=== PATIENT | female | born 1950 | race Caucasian/White ===

== ENCOUNTER 2022-01-11 18:32 | Emergency (ER) | payer MEDICARE, MEDICAID, SELFPAY ==
[2022-01-11] VITALS (28 sets, daily range): BP systolic 149–182; BP diastolic 83–125; PULSE 83–98; RESP 14–32; TEMP 36.4; O2SAT 93–99
--- NOTE | 2022-01-11 18:45 | RT.EKG_ITS ---
APPROVED REPORT Exam: Resting ECG Reason for Exam: sob Patient Location: E HR:93 bpm ECG Measurements Heart Rate 93 AXIS DE 151 P 14 QRSd 85 QRS -18 QT 390 T -9 QTc 484 Conclusion Sinus rhythm...normal P axis, V-rate 60- 99 Inferior infarct, old...Q >35mS, II III aVF
--- NOTE | 2022-01-11 19:00 | DI.CT_ITS ---
Exam(s) CT CHEST PE CTA EXAM: CT CHEST PE CTA CLINICAL HISTORY: dyspnea, chest pain. TECHNIQUE: Imaging Protocol: Axial CT angiography was performed with multi-slice acquisition and mu lti-planar reconstructions as well as axial, coronal and sagittal MIP reconstructions. CONTRAST MATERIAL: Intravenous: Omnipaque 350 Contrast volume:100 ml COMPARISON: No exams were available for comparison FINDINGS: Pulmonary Arteries: No evidence of filling defect to suggest pulmonary emboli. Tracheobronchial tree: Patent where visualized. Mediastinum and Kena: No dominant adenopathy or fluid collection. Pulmonary parenchyma: Mild dependent changes. No consolidation or dominant measurable mass. Pleura: No effusion or pneumothorax. Heart: The heart is mildly dilated. Coronary artery stent noted. Aorta: Thoracic aorta non-dilated. No aneurysm. No dissection. Upper abdomen: Tiny hiatal hernia. Nodular, cirrhotic appearing liver. Status post cholecystectomy . Low-density nodule right adrenal gland, likely adenoma. Bones: Unremarkable for age. IMPRESSION: No evidence of pulmonary embolism or other acute abnormality. Cirrhotic appearing liver.. RADIATION DOSE DELIVERED: 498.15mGy.cm Total DLP DATA REPOSITORY: All CT scans at this facility are submitted to the National Radiology Data Registry (NRDR) Dose Index Registry (DIR) with the [employer] ([employer]). RADIATION OPTIMIZATION: All CT scans at this facility use at least one of these dose optimization te chniques: automated exposure control; mA and/or kV adjustment per patient size (includes targeted exa ms where dose is matched to clinical indication); or iterative reconstruction.
--- NOTE | 2022-01-11 19:04 | ED.GENADUL_ITS ---
Discharge Plan Disposition Patient Disposition: STILL A PATIENT Condition: Stable Discharge Details Clinical Impression: Dyspnea, Cough ED Provider: Elvin Meyer Home Meds and New Rx's Prescriptions: No Action atorvastatin 10 mg Tablet 10 mg PO DAILY sertraline [Zoloft] 25 mg Tablet 25 mg PO DAILY metoprolol succinate 25 mg Tablet Extended Release 24 Hr 25 mg PO DAILY omeprazole 20 mg Capsule,Delayed Release(Dr/Ec) 20 mg PO BID insulin glargine [Lantus Solostar U-100 Insulin] 100 unit/mL (3 mL) Insulin Pen 14 unit SUBCUT DAILY Medical Decision Making 71 yo female with hx of dm, sjogren's, cad s/p 4 stents, htn, who comes in with cc of one week of worsening dyspnea, cough and body aches. She moved to the area from [place] a week ago andher symptoms started when she got to the area. She denies fevers, has had intermittent anterior chest pain when coughing as well. She arrives stable though is hypertensive in the 170's systolic. She is speaking in full sentences, has apical wheezing bilaterally, denies chronic lung disease such as copd, remote smoker years ago. She has no calf tenderness, no jvd. She has no abdominal tenderness. Given her dyspnea, cough and chest pain will obtain fluvid, ekg, troponin though her symptoms seem more infectious then related to acs, and obtain cta to evaluate for pe vs infiltrate. Given her mild wheezing will also treat with solumedrol and duoneb pt signed out to oncoming provider pending lab work, ct results and reassessment Differential Diagnosis Differential Diagnosis: pe, covid, pneumonia, uri ECG Data Attestation: I personally reviewed and interpreted this ECG (s) as follows: Prior ECG tracings: not available for review Interpretation: sinus rhythm, rate of 93, pr 151, no acute st t wave ischemic findings HPI General Mode of arrival: ambulatory . Date/Time Provider Initiated Documentation: 01/11/22 18:41 . Limitations to Documentation: no limitations . Information obtained by: patient . History of Present Illness 71 year old F presents to the emergency department with the chief complaint of shortness of breath, described as moderate, Patient started experiencing this week(s) (1) and it has been constant and intermittent. Rest improves symptom(s), Movement worsens symptoms . Patient notes cough; denies fever/chills. Patient did receive the following treatments prior to arrival, none Related Data Home Medications Medication Instructions Recorded Confirmed atorvastatin 10 mg tablet 10 mg PO DAILY 01/11/22 01/11/22 insulin glargine 100 unit/mL (3 14 unit subcut DAILY 01/11/22 01/11/22 mL) subcutaneous pen (Lantus Solostar U-100 Insulin) metoprolol succinate 25 mg 25 mg PO DAILY 01/11/22 01/11/22 tablet,extended release 24 hr omeprazole 20 mg capsule,delayed 20 mg PO BID 01/11/22 01/11/22 release sertraline 25 mg tablet (Zoloft) 25 mg PO DAILY 01/11/22 01/11/22 Allergies Allergy/AdvReac Type Severity Reaction Status Date / Time Penicillins Allergy Unverified 01/11/22 18:51 General Stated Complaint: SOB IRAIDA: 2 Review of Systems All systems reviewed & are unremarkable except as noted in HPI and below Constitutional Constitutional: Denies chills and Denies fever(s) Eyes Eyes: Denies loss of vision Gastrointestinal Gastrointestinal: Denies abdominal pain, Denies nausea and Denies vomiting Integumentary/Breasts Skin/Breast: Denies rash Neurologic Neurologic: Denies loss of vision PFSH All Active Problems (Updated 01/11/22 @ 19:13 by Elvin Meyer MD) Dyspnea (Acute) Cough (Acute) Social History Smoking/Tobacco Use Status: Former Tobacco Use Smoking risk assessment performed?: Yes Drug use: Never Substance use type: does not use Exam Const General: no acute distress Orientation: alert HENMT Head: normal to inspection Ears: external ears normal General nose exam: external nose normal Mouth: moist mucous membranes Eyes General: appearance normal, both eyes and all related structures Neck Neck: normal visual inspection Resp Effort & Inspection: normal respiratory effort, able to speak in complete sentences and cough Cardio Rate: regular rate Skin General skin exam: no rashes or lesions noted Neuro General: patient alert and patient oriented x3 Extrem General: normal to inspection Psych Mental Status: mental status grossly normal Course Vital Signs Vital signs: Vital Signs Temperature 36.4 C L 01/11/22 18:43 Pulse 94 H 01/11/22 18:43 Respiratory Rate 15 01/11/22 18:43 Blood Pressure 177/125 H 01/11/22 18:43 Pulse Oximetry 94 01/11/22 18:43 Temperature 36.4 C L 01/11/22 18:43 Pulse 94 H 01/11/22 18:43 Respiratory Rate 15 01/11/22 18:43 Respiratory Effort 01/11/22 18:43 Blood Pressure 177/125 H 01/11/22 18:43 Blood Pressure Position Supine 01/11/22 18:43 Pulse Oximetry 94 01/11/22 18:43 Oxygen Delivery Method Room Air 01/11/22 18:43 Oxygen Flow Rate 0 01/11/22 18:43 Pain Level 8 01/11/22 18:43 Sign Out Sign Out Data: Sign Out Comment: recently moved to the area, hx of cad s/p 4 stents, sjogrens, dm, comes in with a week of dyspnea and cough and body aches along with intermittent chest pain primarily with coughing. Pending labs, cta for pe vs infiltrate, and reassessment after neb and solumedrol given she had apical wheezing. Last updated by Elvin Meyer MD at 01/11/22 19:17
[2022-01-11 19:19] LABS: Abs Immature Grans 0.01 10^3/uL (0.0-0.06); Absolute Basophil Count 0.03 10^3/uL (0.0-0.2); Absolute Eosinophil Count 0.01 10^3/uL (0.0-0.7); Absolute Lymphocyte Count 0.63 10^3/uL (1.2-3.4); Absolute Monocyte Count 0.37 10^3/uL (0.1-0.8); Absolute Neutrophil Count 5.12 10^3/uL (1.2-6.7); Basophils % 0.5; Eosinophils % 0.2; HGB 13.8 g/dL (11.2-15.7); Immature Grans % 0.2; Lymphocytes % 10.2; MCH 32.9 pg (27.0-33.0); MCHC 35.4 % (32.0-36.0); MCV 93 fL (80-95); MPV 10.8 fL (8.0-11.0); Neutrophils % 82.9; Platelet Count 155 10^3/uL (130-400); RDW 12.2 % (11.7-14.6); RDW-SD 41.3 fL; WBC 6.17 10^3/uL (4.4-10.8)
[2022-01-11 19:34] LABS: INR 1.1 (0.9-1.1); PTT Activated 25.9 sec (21.0-27.5); Prothrombin Time 10.7 sec (9.3-11.0)
[2022-01-11 19:42] LABS: ALT 31 U/L (14-59); AST 26 U/L (15-37); Albumin 3.5 g/dL (3.4-5.0); Alkaline Phosphatase 171 U/L (46-116); Anion Gap 13.7 mmol/L (3-11); BUN 14 mg/dL (7-18); Bilirubin, Total 0.6 mg/dL (0.2-1.0); CO2 19.3 mmol/L (21.0-32.0); Calcium 8.9 mg/dL (8.5-10.1); Chloride 99 mmol/L (98-107); Estimated GFR 60.61 (mL/min/1.73m2); Glucose 207 mg/dL (74-106); Magnesium 1.5 mg/dL (1.8-2.4); Potassium 3.5 mmol/L (3.5-5.1); Sodium 132 mmol/L (136-145); Total Protein 7.8 g/dL (6.4-8.2); Troponin I < 50 ng/L (<or=60)
[2022-01-11] MEDS: methylPREDNISolone SUCC 125 MG VIAL IVP (19:53)
[2022-01-11] MEDS: Albuterol/Ipratropium 3 ML UPD VIAL UPD (19:55)
[2022-01-11 19:57] LABS: Influenza A PCR Negative (Negative); Influenza B PCR Negative (Negative); RSV PCR Negative (Negative)
[2022-01-11 20:00] LABS: COVID-19 PCR Positive (Negative); Source Nasopharynx
[2022-01-11] MEDS: MAGNESIUM SULFATE 1 GM/100 ML BAG IVPB (20:08)
[2022-01-11] MEDS: Omnipaque 350 MG/ML 500 ML BTL-Imaging package IJ (20:12)
[2022-01-11] MEDS: Normal Saline Flush 10 ML SYR IVP (20:14)
--- NOTE | 2022-01-11 21:02 | DI.VRAD_ITS ---
PROCEDURE INFORMATION: Exam: CTA Chest With Contrast Exam date and time: 01/11/2022 20:18 Age: 71 years old Clinical indication: Other: Dyspnea, chest pain; Prior surgery; Surgery date: 6+ months; Surgery type: Heart stents TECHNIQUE: Imaging protocol: Computed tomographic angiography of the chest with contrast. 3D rendering (Not supervised by radiologist): MIP and/or 3D reconstructed images were created by the technologist. Radiation optimization: All CT scans at this facility use at least one of these dose optimization techniques: automated exposure control; mA and/or kV adjustment per patient size (includes targeted exams where dose is matched to clinical indication); or iterative reconstruction. Contrast material: OMNIPAQUE 350; Contrast volume: 100 ml; Contrast route: INTRAVENOUS (IV); COMPARISON: No relevant prior studies available. FINDINGS: Pulmonary arteries: No pulmonary emboli. Aorta: No aortic aneurysm. No aortic dissection. Lungs: Minimal dependent subsegmental atelectasis. No airspace consolidation. Pleural spaces: No pneumothorax. No pleural effusion. Heart: Mild cardiomegaly. Lymph nodes: No enlarged lymph nodes. Diaphragm: Tiny hiatal hernia. Liver: Cirrhosis partially seen. Nodular liver contour. Adrenal glands: Thickened and or nodular appearance of the adrenal glands. Bones/joints: No acute fracture or subluxation. Soft tissues: No suspicious lesions. IMPRESSION: 1. No pulmonary emboli are seen. 2. Additional findings as described. Dictated and Authenticated by: Mikaela Burgos MD. Ordering:MARIANO Oconnor MD
--- NOTE | 2022-01-11 21:51 | ED.PROG_ITS ---
Date of service: 01/11/22 Time of Service: 21:52 Medical Decision Making Patient signed out to me pending return of all labs as well as CT scan after presenting to ED with some cough and shortness of breath present for over a week now. Has not been getting worse but has not resolved. Tested positive for COVID here. Laboratory studies otherwise unremarkable except for magnesium being a little low which was replaced. Troponin is negative. CTA is negative for PE, consolidation, edema. Patient's room air saturations are normal. Blood pressure little high at times but otherwise good vital signs. Patient looks well and should continue to get better over time. Follow-up with primary care 1 to 2 weeks for recheck. Return precautions provided. Lab Data Lab results reviewed: Yes I reviewed the patient's lab results. Sign Out Sign Out Data: Sign Out Comment: recently moved to the area, hx of cad s/p 4 stents, sjogrens, dm, comes in with a week of dyspnea and cough and body aches along with intermittent chest pain primarily with coughing. Pending labs, cta for pe vs infiltrate, and reassessment after neb and solumedrol given she had apical wheezing. Last updated by Elvin Meyer MD at 01/11/22 19:17 Discharge Plan Disposition Patient Disposition: HOME Condition: Good Discharge Details Clinical Impression: COVID-19 Primary Care Provider: Unknown,Unknown ED Provider: Magdy Bah [place] and New Rx's Prescriptions: Continued atorvastatin 10 mg Tablet 10 mg PO DAILY sertraline [Zoloft] 25 mg Tablet 25 mg PO DAILY metoprolol succinate 25 mg Tablet Extended Release 24 Hr 25 mg PO DAILY omeprazole 20 mg Capsule,Delayed Release(Dr/Ec) 20 mg PO BID insulin glargine [Lantus Solostar U-100 Insulin] 100 unit/mL (3 mL) Insulin Pen 14 unit SUBCUT DAILY Discharge Instructions Instructions: COVID-19 and Chronic Health Conditions (ED) Additional Instructions: You were seen in the ED for cough and shortness of breath. Your work-up reveals that you contracted COVID at some point and are now on the tail end of recovery. Your laboratory studies otherwise look good. Your CT scan of your chest revealed no evidence of pneumonia, pulmonary embolus, fluid overload. You should continue to recover slowly over time but may continue to experience some cough and shortness of breath short-term. Follow-up with primary care in 1 to 2 weeks for recheck. Return to ED for any worsening of your shortness of breath, chest pain, mental status change, other concerns.
== END 2022-01-11 23:34 | disposition home or self-care (01) ==
PROVIDERS: Emergency Medicine; Emergency Provider Emergency Medicine
DX: U07.1 COVID-19 (principal); I25.10 Atherosclerotic heart disease of native coronary artery without angina pectoris; E11.9 Type 2 diabetes mellitus without complications; I50.9 Heart failure, unspecified; Z95.5 Presence of coronary angioplasty implant and graft; Z79.4 Long term (current) use of insulin; Z87.891 Personal history of nicotine dependence
CPT/HCPCS: 71275; 80053; 87637; 93005; 94640; 96361; 96374; 99282; 99285; 83735; 84484; 85025; 85610; 85730; 93010; J2930; J3475; J7620

== ENCOUNTER 2022-03-10 17:14 | Emergency (ER) | payer MEDICARE, MEDICAID, SELFPAY ==
[2022-03-10] VITALS (25 sets, daily range): BP systolic 147–186; BP diastolic 82–101; PULSE 57–71; RESP 10–19; TEMP 36.9; O2SAT 97–98
--- NOTE | 2022-03-10 17:15 | RT.EKG_ITS ---
APPROVED REPORT Exam: Resting ECG Reason for Exam: left arm numbness Patient Location: E HR:63 bpm ECG Measurements Heart Rate 63 AXIS PA 161 P 10 QRSd 92 QRS 11 QT 411 T 4 QTc 420 Conclusion Sinus rhythm. InferiorQ >35mS, II III aVF - OLD
--- NOTE | 2022-03-10 17:30 | DI.RAD_ITS ---
Exam(s) XR CHEST 2V PA LATERAL EXAM: XR CHEST 2V PA LATERAL CLINICAL HISTORY: SOB, HX CAD TECHNIQUE: 2D digital imaging was performed. COMPARISON: No exams were available for comparison FINDINGS: Heart size is within normal limits. The aorta is tortuous. The lungs are clear. No thoracic compre ssion fractures. No pneumothorax or effusion. IMPRESSION: No acute abnormality. DATA REPOSITORY: RADIATION DOSE DELIVERED:
--- NOTE | 2022-03-10 17:45 | ED.GENADUL_ITS ---
Discharge Plan Discharge Details Chief Complaint: Diabetes Clinical Impression: Hyperglycemia, Dehydration Primary Care Provider: PRATIMA ZARAGOZA ED Provider: Reilly Marmolejo Home Meds and New Rx's Prescriptions: No Action atorvastatin 10 mg Tablet 10 mg PO DAILY sertraline [Zoloft] 25 mg Tablet 25 mg PO DAILY metoprolol succinate 25 mg Tablet Extended Release 24 Hr 50 mg PO DAILY omeprazole 20 mg Capsule,Delayed Release(Dr/Ec) 20 mg PO BID insulin glargine [Lantus Solostar U-100 Insulin] 100 unit/mL (3 mL) Insulin Pen 14 unit SUBCUT QA Medical Decision Making This is a 71-year-old female with a history of coronary artery disease, diabetes, who presents complaining of anxiety regarding elevated glucose in the mid 200s the past 2 days as well as some weeks long episodes of shortness of breath and chest tightness that occur when exerting herself, as she has been doing since recently moving from 1 house to another. She denies any chest pain, no new cough, no new lower extremity swelling. She arrives ER slightly hypertensive but with otherwise normal vital signs. Differential diagnosis includes stable angina, hypoglycemia, metabolic abnormality. Patient IV access established, screening labs and EKG obtained. She is referred for chest x-ray. X-ray shows mild hyperinflation without airspace consolidation. Laboratories will note unremarkable CBC. Chemistries with sodium 135, testing 4.0, chloride 103, bicarb 23, BUN 23 and creatinine 1.1 which are elevated over baseline. Glucose is 286. Troponin negative, BNP normal at 199. Will continue to observe the patient and hydrate. We will plan to repeat troponin and glucose. Patient to be signed out to Dr. Meyer. Please see his note regarding final impression and disposition. Sign Out Yes HPI General Mode of arrival: ambulatory . Date/Time Provider Initiated Documentation: 03/10/22 17:26 . Limitations to Documentation: no limitations . Information obtained by: patient . History of Present Illness 71 year old F presents to the emergency department with the chief complaint of Elevated blood glucose and intermittent shortness of breath for weeks, described as moderate, Quality is described as dull, and is localized to the chest. Patient reports no radiation. Patient started experiencing this hour(s) and it has been intermittent. No relieving factors improve symptom(s), No exacerbating factors reported . Patient notes shortness of breath and other (Intermittent chest tightness with walking upstairs); denies cough. Patient did receive the following treatments prior to arrival, none Related Data Home Medications Medication Instructions Recorded Confirmed atorvastatin 10 mg tablet 10 mg PO DAILY 01/11/22 03/10/22 insulin glargine 100 unit/mL (3 14 unit subcut QAM 01/11/22 03/10/22 mL) subcutaneous pen (Lantus Solostar U-100 Insulin) metoprolol succinate 25 mg 50 mg PO DAILY 01/11/22 03/10/22 tablet,extended release 24 hr omeprazole 20 mg capsule,delayed 20 mg PO BID 01/11/22 03/10/22 release sertraline 25 mg tablet (Zoloft) 25 mg PO DAILY 01/11/22 03/10/22 Allergies Allergy/AdvReac Type Severity Reaction Status Date / Time Penicillins Allergy Unverified 03/10/22 17:33 General Stated Complaint: Diabetes IRAIDA: 3 Review of Systems Narrative: No lower extremity pain or swelling. No fever cough. Notes shortness of breath intermittently with exertion. Notes some anxiety. Notes glucose in the mid 200s last 2 days. PFSH All Active Problems (Updated 03/10/22 @ 18:57 by Reilly Marmolejo MD) COVID-19 (Acute) Hyperglycemia (Acute) Dehydration (Acute) Social History Smoking/Tobacco Use Status: Former Tobacco Use Smoking risk assessment performed?: Yes Drug use: Never Substance use type: does not use Do you feel safe at home: Yes Do you feel safe in your relationship?: Yes Exam Narrative Exam Narrative: GEN: awake, alert, oriented 3. Pleasant, well groomed, interactive. HEAD: Normocephalic, atraumatic ENT: Mucous membranes moist, oropharynx unremarkable, External ear exam unremarkable EYES: PERRL, EOMI NECK: Full ROM, no JAMEL, no menigismus CHEST/RESP: Nontender, clear to auscultation bilateral, no wheeze/rhonchi/rales CARDIOVASCULAR: RRR, no murmur, rub eriberto. 2+ Rad pulse bilateral ABDOMEN: Soft, nontender, no mass. +Bowel sounds EXT: Full ROM, no edema, no rash Neuro: Grossly normal neurologic exam, conversant, interactive. Psych: Speech fluent, thoughts congruent, affect anxious Course Vital Signs Vital signs: Vital Signs Temperature 36.9 C 03/10/22 17:24 Pulse 69 03/10/22 17:24 Respiratory Rate 14 03/10/22 17:24 Pulse Oximetry 98 03/10/22 17:24 Temperature 36.9 C 03/10/22 17:24 Temperature Source Oral 03/10/22 17:24 Pulse 69 03/10/22 17:24 Respiratory Rate 14 03/10/22 17:24 Pulse Oximetry 98 03/10/22 17:24 Oxygen Delivery Method Room Air 03/10/22 17:24 Oxygen Flow Rate 0 03/10/22 17:24 Pain Level 8 03/10/22 17:24 Sign Out Sign Out Data: Sign Out Comment: Followup repeat trop, recheck Glu Last updated by Reilly Marmolejo MD at 03/10/22 19:12
[2022-03-10 18:06] LABS: Abs Immature Grans 0.01 10^3/uL (0.0-0.06); Absolute Basophil Count 0.05 10^3/uL (0.0-0.2); Absolute Monocyte Count 0.47 10^3/uL (0.1-0.8); Absolute Neutrophil Count 3.26 10^3/uL (1.2-6.7); Basophils % 0.8; Eosinophils % 4.9; HCT 37.3 % (36.0-46.0); HGB 12.6 g/dL (11.2-15.7); Immature Grans % 0.2; Lymphocytes % 32.8; MCH 32.1 pg (27.0-33.0); MCHC 33.8 % (32.0-36.0); MCV 95 fL (80-95); MPV 10.5 fL (8.0-11.0); Monocytes % 7.7; Neutrophils % 53.6; Platelet Count 150 10^3/uL (130-400); RBC 3.93 10^6/uL (3.93-5.22); RDW 12.2 % (11.7-14.6); RDW-SD 42.8 fL; WBC 6.09 10^3/uL (4.4-10.8)
[2022-03-10] MEDS: Normal Saline 1,000 ML 1000 ML IV ×2 (18:10→19:00)
[2022-03-10 18:31] LABS: ALT 42 U/L (14-59); AST 32 U/L (15-37); Albumin 3.3 g/dL (3.4-5.0); Alkaline Phosphatase 166 U/L (46-116); BUN 23 mg/dL (7-18); Bilirubin, Total 0.3 mg/dL (0.2-1.0); CREATININE 1.1 mg/dL (0.55-1.02); Chloride 103 mmol/L (98-107); Estimated GFR 54.06 (mL/min/1.73m2); Glucose 286 mg/dL (74-106); Magnesium 1.9 mg/dL (1.8-2.4); NT-proBNP 199 pg/mL (<300); Sodium 135 mmol/L (136-145); Total Protein 7.1 g/dL (6.4-8.2); Troponin I < 50 ng/L (<or=60)
--- NOTE | 2022-03-10 18:39 | DI.VRAD_ITS ---
PROCEDURE INFORMATION: Exam: XR Chest Exam date and time: 03/10/2022 18:24 Age: 71 years old Clinical indication: Shortness of breath TECHNIQUE: Imaging protocol: Radiologic exam of the chest. Views: 2 views. COMPARISON: CT CHEST PE CTA 01/11/2022 20:18 FINDINGS: Lungs: Mild hyperinflation without airspace consolidation. Pleural spaces: No pleural effusion. No pneumothorax. Heart/Mediastinum: The cardiac silhouette is upper limits of normal. Bones/joints: No acute fracture. IMPRESSION: Mild hyperinflation without airspace consolidation. Dictated and Authenticated by: Mikaela Burgos MD. Ordering:MIGUEL Grover MD
[2022-03-10 18:49] LABS: Bilirubin Negative (Negative); Blood Negative (Negative); Clarity Clear (Clear); Glucose 250 mg/dL (Negative); Ketones Negative (Negative); Leukocyte Esterase Negative (Negative); Nitrite Negative (Negative); Specific Gravity >= 1.030 (1.005-1.025); Urobilinogen 0.2 EU/dL (Up TO 0.2); pH 5.5 (5-8)
[2022-03-10 21:46] LABS: Troponin I < 50 ng/L (<or=60)
--- NOTE | 2022-03-10 21:58 | W.EDPROG ---
Date of service: 03/10/22 Time of Service: 21:58 Medical Decision Making patient signed out to me pending second troponin which is negative, she is currently asymptomatic ambulating without symptoms. She is stable for d/c, advised to f/u with pcp katey and return precautions given Sign Out Yes Sign Out Sign Out Data: Sign Out Comment: Followup repeat trop, recheck Glu Last updated by Reilly Marmolejo MD at 03/10/22 19:12 Discharge Plan Disposition Patient Disposition: Home Condition: Stable Discharge Details Clinical Impression: Hyperglycemia, Dehydration Primary Care Provider: PRATIMA ZARAGOZA ED Provider: Elvin Meyer Home Meds and New Rx's Prescriptions: Continued atorvastatin 10 mg Tablet 10 mg PO DAILY sertraline [Zoloft] 25 mg Tablet 25 mg PO DAILY metoprolol succinate 25 mg Tablet Extended Release 24 Hr 50 mg PO DAILY omeprazole 20 mg Capsule,Delayed Release(Dr/Ec) 20 mg PO BID insulin glargine [Lantus Solostar U-100 Insulin] 100 unit/mL (3 mL) Insulin Pen 14 unit SUBCUT QAM Discharge Instructions Instructions: Diabetic Hyperglycemia (ED) Additional Instructions: follow up with your primary care provider as soon as possible if you feel more ill, have difficulty breathing or chest pain return to the emergency department
== END 2022-03-10 22:35 | disposition home or self-care (01) ==
PROVIDERS: Emergency Medicine; Emergency Provider Emergency Medicine; PCP Nurse Practitioner Primary Care
DX: E86.0 Dehydration (principal); E11.65 Type 2 diabetes mellitus with hyperglycemia; I25.10 Atherosclerotic heart disease of native coronary artery without angina pectoris; R91.8 Other nonspecific abnormal finding of lung field; Z79.4 Long term (current) use of insulin; Z86.16 Personal history of COVID-19; R06.02 Shortness of breath
CPT/HCPCS: 36415; 80053; 93005; 96360; 96361; 99284; 71046; 81003; 83735; 83880; 84484; 85025; 93010

== ENCOUNTER 2022-12-09 12:23 | Outpatient (REF) | payer MEDICARE, SELFPAY ==
--- NOTE | 2022-12-09 11:50 | SKI_PTH ---
PATIENT: Suzanne Tillman LOC: [facility] U#:[id number] AGE/SX: 72/F ROOM: RE12/09/[address]: HUNG Lindo : 1950 BED: DIS: 12/09/2022 SPEC #: [id number] RECD: 12/09/22 18:30 STATUS: ALEXANDRU REQ #: [id number] DEE: 12/09/22 11:[address]: Dann Medina DEPT: Surgical Specimen RECD BY: Susan Montez ENTERED: 12/09/22 18:31 SP TYPE: COLLIN LY DR: PRATIMA ZARAGOZA Tissues: 1 - SKIN BIOPSY(SHAVE/PUNCH) Procedures: SKIN LEVEL 4 Comments: [id number]
== END 2022-12-09 12:24 | disposition home or self-care (01) ==
LOC: LBN 12:23
PROVIDERS: PCP Nurse Practitioner Primary Care; Visit Provider Physician Assistant
DX: L28.1 Prurigo nodularis (principal); R21 Rash and other nonspecific skin eruption
CPT/HCPCS: 88305

== ENCOUNTER 2022-12-20 10:36 | Outpatient (CLI) | payer MEDICARE, MEDICAID, SELFPAY ==
[2022-12-20 10:21] LABS: Bilirubin Negative (Negative); Blood Trace-intact (Negative); Clarity Clear (Clear); Glucose Negative (Negative); Ketones Negative (Negative); Leukocyte Esterase Trace (Negative); Nitrite Negative (Negative); Urobilinogen 0.2 mg/dL (Up to 0.2)
[2022-12-20 10:27] LABS: Abs Immature Grans 0.02 10^3/uL (0.0-0.06); Absolute Basophil Count 0.05 10^3/uL (0.0-0.2); Absolute Eosinophil Count 0.53 10^3/uL (0.0-0.7); Absolute Lymphocyte Count 1.57 10^3/uL (1.2-3.4); Absolute Monocyte Count 0.42 10^3/uL (0.1-0.8); Absolute Neutrophil Count 3.92 10^3/uL (1.2-6.7); Basophils % 0.8; Eosinophils % 8.1; HCT 40.3 % (36.0-46.0); HGB 13.6 g/dL (11.2-15.7); Immature Grans % 0.3; Lymphocytes % 24.1; MCH 32.9 pg (27.0-33.0); MCHC 33.7 % (32.0-36.0); MCV 98 fL (80-95); MPV 10.1 fL (8.0-11.0); Monocytes % 6.5; Neutrophils % 60.2; Platelet Count 202 10^3/uL (130-400); RBC 4.13 10^6/uL (3.93-5.22); RDW 12.8 % (11.7-14.6); RDW-SD 45.5 fL; WBC 6.51 10^3/uL (4.4-10.8)
[2022-12-20 10:31] LABS: ESR 27 mm/hr (0-30)
[2022-12-20 10:36] LABS: Bacteria Few HPF (Negative); C & S Indicated? Yes; Casts Negative LPF (Negative); Crystals Negative HPF (Negative); Epithelial Cells Rare HPF (Negative); Mucus Moderate (Negative)
[2022-12-20 11:16] LABS: ALT 21 U/L (14-59); AST 19 U/L (15-37); Albumin 3.6 g/dL (3.4-5.0); Alkaline Phosphatase 133 U/L (46-116); Anion Gap 10.2 mmol/L (3-11); BUN 22 mg/dL (7-18); Bilirubin, Total 0.5 mg/dL (0.2-1.0); C-Reactive Protein 0.16 mg/dL (0.0-0.3); CO2 23.8 mmol/L (21.0-32.0); CREATININE 1.1 mg/dL (0.55-1.02); Calcium 9.4 mg/dL (8.5-10.1); Chloride 105 mmol/L (98-107); Estimated GFR 53.72 (mL/min/1.73m2); Glucose 159 mg/dL (74-106); Potassium 4.6 mmol/L (3.5-5.1); Sodium 139 mmol/L (136-145); Total Protein 8.1 g/dL (6.4-8.2)
[2022-12-20 18:12] LABS: Rheumatoid Factor 10.8 IU/mL (<12.0)
[2022-12-21 09:30] LABS: C4 Complement 34 mg/dL (13-39)
[2022-12-21 14:14] LABS: ANA Interpretation Positive (Negative); ANA Titer Pattern 1:320 Speckled
[2022-12-21 14:44] LABS: Albumin 51.9 % (55.8-66.1); Albumin g/dL 4.1 g/dL (3.6-5.2); Total Protein 7.9 g/dL (6.3-8.2)
[2022-12-23 15:36] LABS: dsDNA Ab, IgG <12.3 IU/mL (<30.0)
[2022-12-23 15:58] LABS: RNP Ab, IgG 9.6 Units (<20.0); SS-A Antibody 112.1 Units (<20.0); SS-B (La) Ab, IgG 44.5 Units (<20.0); Sm (Smith) Ab, IgG 3.1 Units (<20.0)
== END 2022-12-20 10:37 | disposition home or self-care (01) ==
LOC: LBO 10:36
PROVIDERS: PCP Nurse Practitioner Primary Care; Visit Provider Internal Medicine Rheumatology
DX: M35.00 Sjogren syndrome, unspecified (principal)
CPT/HCPCS: 36415; 80053; 85652; 81003; 81015; 82595; 84165; 85025; 86038; 86140; 86160; 86225; 86235; 86431; 87086

== ENCOUNTER 2023-07-21 01:28 | Outpatient (CLI) | payer MEDICARE, MEDICAID, SELFPAY ==
[2023-07-21 16:04] LABS: Abs Immature Grans 0.03 10^3/uL (0.0-0.06); Absolute Basophil Count 0.04 10^3/uL (0.0-0.2); Absolute Eosinophil Count 0.42 10^3/uL (0.0-0.7); Absolute Lymphocyte Count 1.56 10^3/uL (1.2-3.4); Absolute Monocyte Count 0.43 10^3/uL (0.1-0.8); Absolute Neutrophil Count 3.83 10^3/uL (1.2-6.7); Basophils % 0.6; Eosinophils % 6.7; HCT 40.1 % (36.0-46.0); HGB 13.4 g/dL (11.2-15.7); Immature Grans % 0.5; Lymphocytes % 24.7; MCH 32.4 pg (27.0-33.0); MCHC 33.4 % (32.0-36.0); MCV 97 fL (80-95); MPV 10.3 fL (8.0-11.0); Monocytes % 6.8; Neutrophils % 60.7; Platelet Count 207 10^3/uL (130-400); RBC 4.13 10^6/uL (3.93-5.22); RDW-SD 46.5 fL; WBC 6.31 10^3/uL (4.4-10.8)
[2023-07-21 16:06] LABS: Hemoglobin A1C 9.5 % (<5.7)
[2023-07-21 17:06] LABS: ALT 39 U/L (14-59); AST 28 U/L (15-37); Albumin 3.5 g/dL (3.4-5.0); Alkaline Phosphatase 146 U/L (46-116); BUN 19 mg/dL (7-18); Bilirubin, Total 0.5 mg/dL (0.2-1.0); CREATININE 1.1 mg/dL (0.55-1.02); Calculated LDL 82 mg/dL (<100); Chloride 108 mmol/L (98-107); Cholesterol 159 mg/dL (<200); Estimated GFR 53.72 (mL/min/1.73m2); Glucose 229 mg/dL (74-106); HDL Cholesterol 40 mg/dL (40-60); Potassium 4.4 mmol/L (3.5-5.1); Sodium 145 mmol/L (136-145); TSH (W/Ref FT4) 3.34 uIU/mL (0.36-3.74); Total Protein 7.4 g/dL (6.4-8.2); Triglyceride 189 mg/dL (<150); Vitamin B12 294 pg/mL (193-986)
== END 2023-07-21 01:29 | disposition home or self-care (01) ==
LOC: LBO 01:28
PROVIDERS: PCP Nurse Practitioner Primary Care; Visit Provider Nurse Practitioner Primary Care
DX: E11.9 Type 2 diabetes mellitus without complications (principal); R74.8 Abnormal levels of other serum enzymes
CPT/HCPCS: 36415; 80053; 80061; 82607; 83036; 84443; 85025

== ENCOUNTER 2024-01-04 02:21 | Outpatient (CLI) | payer MEDICARE, MEDICAID, SELFPAY ==
--- NOTE | 2024-01-04 10:08 | DI.RAD_ITS ---
Exam(s) XR CHEST 2V PA LATERAL EXAM: XR CHEST 2V PA LATERAL CLINICAL HISTORY: CHRONIC PRURITUS IN PT WITH KNOWN SJOGRENSM? LYMPHOMA TECHNIQUE: 2D digital imaging was performed of the chest. Two images were obtained. PA and lateral views were obtained. COMPARISON: CR,XR XR CHEST 2V PA LATERAL from 03/10/2022 FINDINGS: MEDIASTINUM: Normal. HEART: Normal. PULMONARY VASCULATURE: Normal. LUNGS: Clear. PLEURAL SPACE: No pleural effusion or pneumothorax. BONE:Within normal limits for the patient's age. OTHER FINDINGS:Normal. IMPRESSION: No acute pulmonary findings. DATA REPOSITORY: RADIATION DOSE DELIVERED:
== END 2024-01-04 02:41 ==
LOC: DI 02:22
PROVIDERS: PCP Nurse Practitioner Primary Care; Visit Provider Internal Medicine
DX: L28.1 Prurigo nodularis
CPT/HCPCS: 71046

== ENCOUNTER 2024-01-04 03:02 | Outpatient (CLI) | payer MEDICARE, MEDICAID, SELFPAY ==
[2024-01-04 11:43] LABS: Calculated LDL 80 mg/dL (<100); Cholesterol 142 mg/dL (<200); HDL Cholesterol 37 mg/dL (40-60); Triglyceride 128 mg/dL (<150)
== END 2024-01-04 03:03 | disposition home or self-care (01) ==
LOC: LBO 03:02
PROVIDERS: PCP Nurse Practitioner Primary Care; Visit Provider Internal Medicine Cardiovascular Disease
DX: I25.10 Atherosclerotic heart disease of native coronary artery without angina pectoris (principal)
CPT/HCPCS: 36415; 80061

== ENCOUNTER 2024-06-28 13:23 | Emergency (ER) | payer MEDICARE, MEDICAID, SELFPAY ==
[2024-06-28] VITALS (34 sets, daily range): BP systolic 139–209; BP diastolic 65–106; PULSE 62–82; RESP 10–25; TEMP 36.6; O2SAT 93–100
--- NOTE | 2024-06-28 13:45 | RT.EKG_ITS ---
APPROVED REPORT Exam: Resting ECG Reason for Exam: [facility] Patient Location: E HR:71 bpm ECG Measurements Heart Rate 71 AXIS WA 167 P 45 QRSd 90 QRS 15 QT 404 T -8 QTc 440 Conclusion Sinus rhythm...normal P axis, V-rate 60- 99 Inferior infarct, old...Q >35mS, II III aVF Physician: no stemi
--- NOTE | 2024-06-28 13:45 | DI.CT_ITS ---
Exam(s) CT BRAIN NECK CTA EXAM: CT BRAIN NECK CTA CLINICAL HISTORY: stroke, left sided deficits. TECHNIQUE: Imaging Protocol: Axial CT angiography was performed with multi-slice acquisition and mu lti-planar and/or 3D reconstructions. CONTRAST MATERIAL: Intravenous: Omnipaque 350 contrast volume:70 mL COMPARISON: No exams were available for comparison FINDINGS: CT Head W/O and W: Ventricles and Extra axial spaces: Normal in size and morphology for the patient's age. Hemorrhage: None. Cerebral parenchyma: There are subtle areas of decreased attenuation in the white matter most suggest jazmyne of small vessel ischemic disease. No definite acute territorial infarct is seen at this time. Midline shift: None. Brainstem/Cerebellum: Normal. Calvarium: Normal. Visualized Paranasal sinuses/Mastoids: Clear. Soft Tissues: Unremarkable. Enhancement: Unremarkable. CTA Neck W: Common Carotid: Right: No dissection, occlusion or significant stenosis. Mild atherosclerosis is seen in the distal common carotid artery. Left: No dissection, occlusion or significant stenosis. Atherosclerosis is seen in the distal left c ommon carotid artery. External Carotid: Right: No occlusion or significant stenosis. Left: No occlusion or significant stenosis. Internal Carotid: Right: No dissection, occlusion or significant stenosis. There is mild atherosclerosis seen at the o rigin of the internal carotid artery. Left: No dissection, occlusion or significant stenosis. Mild atherosclerotic calcification is seen a t the origin of the internal carotid artery. Vertebral Artery: Right: No dissection, occlusion or significant stenosis. Left: No dissection, occlusion or significant stenosis. Lung Apices: Normal. Bones: Within normal limits for the patient's age. Soft Tissues: Normal. Thyroid gland: Tiny hypodense nodules are seen in the thyroid gland. No follow-up is recommended. CTA Brain W: Internal Carotid Arteries: Atherosclerotic calcification is seen in the cavernous portions of the int ernal carotid arteries bilaterally. No significant stenosis or occlusion is seen. Anterior Cerebral Arteries: Right: No aneurysm, occlusion or significant stenosis. Left: No aneurysm, occlusion or significant stenosis. Middle Cerebral Arteries: Right: There is a hyperdense adjacent to the right insula corresponding to an M2 segment of the righ t middle cerebral artery corresponding likely to intraluminal thromboembolic material. There is decr eased opacification of the vessels distally on the postcontrast images. (Series 5 images 32 through 35). Left: No aneurysm, occlusion or significant stenosis. Posterior Cerebral Arteries: Right: No aneurysm, occlusion or significant stenosis. Left: No aneurysm, occlusion or significant stenosis. Vertebral Arteries: Right: No aneurysm, occlusion or significant stenosis. Left: No aneurysm, occlusion or significant stenosis. Basilar Artery: No aneurysm, occlusion or significant stenosis. IMPRESSION: 1. Thromboembolic occlusion is seen at an M2 branch of the right middle cerebral artery (series 5, im ages 32-35). No mass effect is seen at this time. 2. No acute intracranial hemorrhage is present. There is no midline shift or mass effect present at this time. There are findings of decreased attenuation in the white matter consistent with chronic m icrovascular ischemic disease. 3. No occlusion or significant stenosis on the CT angiography of the neck. 4. Findings were discussed with Dr. Piedra at 2:50 p.m. on 06/28/2024. RADIATION DOSE DELIVERED: 2,124.32mGy.cm Total DLP DATA REPOSITORY: All CT scans at this facility are submitted to the National Radiology Data Registry (NRDR) Dose Index Registry (DIR) with the [employer] (ACR). RADIATION OPTIMIZATION: All CT scans at this facility use at least one of these dose optimization te chniques: automated exposure control; mA and/or kV adjustment per patient size (includes targeted exa ms where dose is matched to clinical indication); or iterative reconstruction.
[2024-06-28 14:06] LABS: Abs Immature Grans 0.02 10^3/uL (0.0-0.06); Absolute Basophil Count 0.04 10^3/uL (0.0-0.2); Absolute Eosinophil Count 0.36 10^3/uL (0.0-0.7); Absolute Lymphocyte Count 1.09 10^3/uL (1.2-3.4); Absolute Neutrophil Count 3.44 10^3/uL (1.2-6.7); Basophils % 0.7 %; Eosinophils % 6.7 %; HCT 37.1 % (36.0-46.0); HGB 12.4 g/dL (11.2-15.7); Immature Grans % 0.4 %; Lymphocytes % 20.4 %; MCH 32.6 pg (27.0-33.0); MCHC 33.4 % (32.0-36.0); MCV 98 fL (80-95); MPV 10.1 fL (8.0-11.0); Monocytes % 7.5 %; Neutrophils % 64.3 %; Platelet Count 171 10^3/uL (130-400); RDW 12.8 % (11.7-14.6); RDW-SD 45.6 fL; WBC 5.35 10^3/uL (4.4-10.8)
[2024-06-28 14:17] LABS: INR 1.1 (0.9-1.1); Prothrombin Time 10.7 sec (9.1-11.1)
[2024-06-28] MEDS: Omnipaque 350 MG/ML 500 ML BTL-Imaging package 70 ML IJ (14:20)
[2024-06-28] MEDS: Normal Saline - Diluent 50 ML VIAL IJ (14:21)
[2024-06-28 14:45] LABS: ALT 48 U/L (14-59); AST 37 U/L (15-37); Albumin 3.2 g/dL (3.4-5.0); Alkaline Phosphatase 118 U/L (46-116); Anion Gap 8.4 mmol/L (3-11); BUN 20 mg/dL (7-18); Bilirubin, Total 0.6 mg/dL (0.2-1.0); CO2 22.6 mmol/L (21.0-32.0); Chloride 109 mmol/L (98-107); Estimated GFR 59.86 (mL/min/1.73m2); Glucose 245 mg/dL (74-106); Magnesium 1.8 mg/dL (1.8-2.4); Potassium 4.1 mmol/L (3.5-5.1); Sodium 140 mmol/L (136-145); Total Protein 7.1 g/dL (6.4-8.2); Troponin I 15 ng/L (<or=51)
[2024-06-28 14:53] LABS: TSH (W/Ref FT4) 3.64 uIU/mL (0.36-3.74)
[2024-06-28] MEDS: Labetalol 100 MG/20 ML VIAL 20 MG IVP (15:00)
--- NOTE | 2024-06-28 15:02 | W.ED.GENAD ---
Discharge Plan Disposition Patient Disposition: Transfer-Acute Inpatient Care Specific Acute Inpt Facility: [facility] Condition: Critical Discharge Details Clinical Impression: Ischemic embolic stroke Primary Care Provider: PRATIMA ZARAGOZA ED Provider: Bienvenido Piedra Home Meds and New Rx's Prescriptions: No Action Ozempic 0.25 mg or 0.5 mg (2 mg/3 mL) pen injector 0.25 mg subcut QWEEK Rx Instructions: for 4 weeks then increase to 0.5mg ProAir RespiClick 90 mcg/actuation aerosol powdr breath activated 2 inh inhalation Q4H PRN methocarbamol 500 mg tablet 500 mg PO Q6H PRN Bydureon BCise 2 mg/0.85 mL auto-injector 2 mg subcut QWEEK sertraline 50 mg tablet 50 mg PO DAILY atorvastatin 40 mg tablet 40 mg PO DAILY losartan 50 mg tablet 50 mg PO DAILY docusate sodium [DOK] 100 mg tablet 100 mg PO DAILY aspirin 81 mg tablet,delayed release (DR/EC) 81 mg PO BID triamcinolone acetonide 0.1 % lotion 1 applic topical BID 14 Days Qty: 60 2RF metoprolol succinate 25 mg Tablet Extended Release 24 Hr 50 mg PO DAILY omeprazole 20 mg Capsule,Delayed Release(Dr/Ec) 20 mg PO BID insulin glargine [Lantus Solostar U-100 Insulin] 100 unit/mL (3 mL) Insulin Pen 14 unit SUBCUT QAM dexlansoprazole [Dexilant] 30 mg capsule,biphase delayed releas 30 mg PO DAILY HPI General Date/Time Provider Initiated Documentation: 06/28/24 13:25. HPI Narrative: 73-year-old female with a past medical history of previous heart attack, reactive airway disease, high cholesterol, hypertension, GERD, who is not on any blood thinners but does take an 81 mg aspirin, presents today for strokelike symptoms. Daughter and EMS provide history. At 1 PM (she was acting normal previous to this) she developed left-sided weakness, confusion, and altered mental status. She was brought in by EMS. On EMSs arrival she was obtunded with notable left-sided deficits. During their transition to the ED she had notable improvement was able to talk, speak and interact well. However her other deficits still remained. Currently she denies any headache or chest pain. She denies any falls or trauma. She has no other complaints at this time. No prior history of stroke. Related Data Home Medications ?Medication ?Instructions ?Recorded ?Confirmed insulin glargine 100 unit/mL (3 14 unit subcut QAM 01/11/22 06/28/24 mL) subcutaneous pen (Lantus Solostar U-100 Insulin) metoprolol succinate 25 mg 50 mg PO DAILY 01/11/22 06/28/24 tablet,extended release 24 hr omeprazole 20 mg capsule,delayed 20 mg PO BID 01/11/22 06/28/24 release albuterol sulfate 90 mcg/actuation 2 inh inhalation Q4H PRN 12/07/22 06/28/24 breath activated powder inhaler (ProAir RespiClick) aspirin 81 mg tablet,delayed 81 mg PO BID 12/07/22 06/28/24 release atorvastatin 40 mg tablet 40 mg PO DAILY 12/07/22 06/28/24 docusate sodium 100 mg tablet (DOK) 100 mg PO DAILY 12/07/22 06/28/24 exenatide microspheres 2 mg/0.85 2 mg subcut QWEEK 12/07/22 06/28/24 mL subcutaneous auto-injector ([employer]) losartan 50 mg tablet 50 mg PO DAILY 12/07/22 06/28/24 methocarbamol 500 mg tablet 500 mg PO Q6H PRN 12/07/22 06/28/24 semaglutide 0.25 mg or 0.5 mg (2 0.25 mg subcut QWEEK 12/07/22 06/28/24 mg/3 mL) subcutaneous pen injector (Ozempic) sertraline 50 mg tablet 50 mg PO DAILY 12/07/22 06/28/24 triamcinolone acetonide 0.1 % 1 applic topical BID 14 days #60 mL 12/09/22 06/28/24 lotion dexlansoprazole 30 mg 30 mg PO DAILY 06/28/24 06/28/24 capsule,biphase delayed release (Dexilant) Previous Rx's ?Medication ?Instructions ?Recorded triamcinolone acetonide 0.1 % 1 applic topical BID 14 days #60 mL 12/09/22 lotion Allergies Allergy/AdvReac Type Severity Reaction Status Date / Time Penicillins Allergy Hives Unverified 06/28/24 15:56 lisinopril AdvReac Mild Dizziness/L Verified 06/28/24 15:56 ighthead empagliflozin (From AdvReac Unknown Verified 06/28/24 15:56 Jardiance) General Stated Complaint: CVA/TIA IRAIDA: 3 Exam Narrative Exam Narrative: 1.Const: Well-nourished, Well-developed, appearing stated age 2.Eyes: PERRL, no conjunctival injection, and symmetrical lids. 3.ENT: Atraumatic external nose and ears. Moist MM. Neck: Symmetric, trachea midline, No thyromegaly. 4.CVS: +S1/S2, Peripheral pulses 2+ and equal in all extremities. Brisk capillary refill in all extremities. 5.RESP: Unlabored respiratory effort. Clear to auscultation bilaterally. No wheezes rales or rhonchi 6.GI: Soft, Nontender/Nondistended, No hepatosplenomegaly. No guarding or rebound. 7.MSK: Normocephalic/Atraumatic, Extremities w/o deformity or ttp No cyanosis or clubbing, Normal movement of all extremities 8.Skin: Warm, Dry. No rashes or lesions. 9.Neuro: compound specialist II-XII grossly intact. Sensation grossly intact, no focal neurologic deficits. CN 2-12 tested and intact except for notable evidence of left-sided visual field deficit with left-sided hemianopsia, patient is able to hold bilateral arms up for 5 seconds and there is no pronator drift, patient also holds legs up for 10 seconds bilaterally without any drop, sensation is absent to light touch in hands and feet on the left, but normal on the right. Cerebellar exam surprisingly normal as tested by [id number] and rapid alternating movements, fine finger movements. Normal speech pattern and verbal understanding. Notable inattention to the left side of her body. NIH stroke score is 8 secondary to 1 point for a partial right word gaze, complete left-sided hemianopsia 1 point for limb ataxia for the left lower extremity, 2 points for complete sensation loss on the left, and 2 points for profound Sanjay inattention. 10.Psych: (AAO) x3. Appropriate mood and affect Course Vital Signs Vital signs: Vital Signs Temperature 36.6 C 06/28/24 13:50 Pulse 75 06/28/24 13:50 Respiratory Rate 16 06/28/24 13:50 Blood Pressure 139/84 06/28/24 13:50 Pulse Oximetry 97 06/28/24 13:50 Temperature 36.6 C 06/28/24 13:50 Pulse 68 06/28/24 14:31 Pulse 70 06/28/24 14:31 Respiratory Rate 19 06/28/24 14:31 Respiratory Effort Normal 06/28/24 14:42 Blood Pressure 171/78 H 06/28/24 14:31 Blood Pressure Mean 110 06/28/24 14:31 Pulse Oximetry 96 06/28/24 14:31 Pain Level 0 06/28/24 13:50 Lab/Test Results Lab/Test Results: Laboratory Tests Range/Units 06/28/24 13:57 WBC (4.4-10.8) 10^3/uL 5.35 RBC (3.93-5.22) 10^6/uL 3.80 L Hgb (11.2-15.7) g/dL 12.4 Hct (36.0-46.0) % 37.1 MCV (80-95) fL 98 H MCH (27.0-33.0) pg 32.6 MCHC (32.0-36.0) % 33.4 RDW (11.7-14.6) % 12.8 Plt Count (130-400) 10^3/uL 171 MPV (8.0-11.0) fL 10.1 Immature Gran % % 0.4 Neutrophils % % 64.3 Lymphocytes % % 20.4 Monocytes % % 7.5 Eosinophils % % 6.7 Basophils % % 0.7 Nucleated RBC % (0.0-0.3) % 0.0 Absolute Neutrophils (1.2-6.7) 10^3/uL 3.44 Absolute Lymphocytes (1.2-3.4) 10^3/uL 1.09 L Absolute Monocytes (0.1-0.8) 10^3/uL 0.40 Absolute Eosinophils (0.0-0.7) 10^3/uL 0.36 Absolute Basophils (0.0-0.2) 10^3/uL 0.04 PT (9.1-11.1) sec 10.7 INR (0.9-1.1) 1.1 Sodium (136-145) mmol/L 140 Potassium (3.5-5.1) mmol/L 4.1 Chloride (98-107) mmol/L 109 H Carbon Dioxide (21.0-32.0) mmol/L 22.6 Anion Gap (3-11) mmol/L 8.4 BUN (7-18) mg/dL 20 H Creatinine (0.55-1.02) mg/dL 1.0 Est GFR (CKD-EPI 2020) (mL/min/1.73m2) 59.86 Glucose (74-106) mg/dL 245 H Calcium (8.5-10.1) mg/dL 9.0 Magnesium (1.8-2.4) mg/dL 1.8 Total Bilirubin (0.2-1.0) mg/dL 0.6 AST (15-37) U/L 37 ALT (14-59) U/L 48 Alkaline Phosphatase (46-116) U/L 118 H Troponin I (<or=51) ng/L 15 Total Protein (6.4-8.2) g/dL 7.1 Albumin (3.4-5.0) g/dL 3.2 L TSH (0.36-3.74) uIU/mL 3.64 Medical Decision Making 73-year-old female with a past medical history of previous heart attack, reactive airway disease, high cholesterol, hypertension, GERD, who is not on any blood thinners but does take an 81 mg aspirin, presents today for strokelike symptoms. Daughter and EMS provide history. At 1 PM (she was acting normal previous to this) she developed left-sided weakness, confusion, and altered mental status. She was brought in by EMS. On EMSs arrival she was obtunded with notable left-sided deficits. During their transition to the ED she had notable improvement was able to talk, speak and interact well. However her other deficits still remained. Currently she denies any headache or chest pain. She denies any falls or trauma. She has no other complaints at this time. No prior history of stroke. CN 2-12 tested and intact except for notable evidence of left-sided visual field deficit with left-sided hemianopsia, patient is able to hold bilateral arms up for 5 seconds and there is no pronator drift, patient also holds legs up for 10 seconds bilaterally without any drop, sensation is absent to light touch in hands and feet on the left, but normal on the right. Cerebellar exam surprisingly normal as tested by [id number] and rapid alternating movements, fine finger movements. Normal speech pattern and verbal understanding. Notable inattention to the left side of her body. NIH stroke score is 8 secondary to 1 point for a partial right word gaze, complete left-sided hemianopsia 1 point for limb ataxia for the left lower extremity, 2 points for complete sensation loss on the left, and 2 points for profound Sanjay inattention. Concern for stroke, likely ischemic over bleed. No fever or chills to suggest infection. Blood pressure normal at this time. Will get CTA of the head and neck, evaluate for electrolyte disturbance, monitor closely and reassess. Will contact telemetry neuro for stat neurologic assessment. 3:25 PM Patient is a TNK candidate. She is not on blood thinners or anticoagulants. COVID symptomatology and deficits remain without any further improvement. CT scan shows evidence of thromboembolic occlusion at M2 in the right middle cerebral artery with a vascularity change. Discussed the case with Dr. King of teleneurology at [facility], he agrees with the patient's symptoms, and the concern for stroke and the need for definitive management. I discussed in depth the risks and benefits with both the patient and her daughter who is at bedside. Understanding these risks, family and the patient would like to progress with medication administration. During the assessment patient's blood pressure has significantly risen to 195, which keeps her from being a candidate for TNK therapy. We will give labetalol and started on nicardipine drip as needed to bring this down to appropriately give the TNK. 3:35 PM Patient's blood pressure has come down to the 170s, she remains a candidate for TNK. This will be administered now, she is on a nicardipine drip. Patient will be flown to [facility] for further thrombus retrieval or thrombectomy. Patient agrees with plan. Discussed case with daughter and son who are both at bedside and they are in agreement. I have extensively reviewed the treatment plan with the patient. I have addressed all patient concerns at this time. I have also discussed the plan with the admitting physician and they agree with the current assessment and plan and have agreed to assume responsibility for the patient. All parties demonstrate verbal understanding and agreement with our assessment and plan at this time. The documentation in this chart was dictated using [employer] dictation software. Please excuse any dictation errors. At time of transfer patient demonstrates intact GCS, with no indication for intubation. FINDINGS: CT Head W/O and W: Ventricles and Extra axial spaces: Normal in size and morphology for the patient's age. Hemorrhage: None. Cerebral parenchyma: There are subtle areas of decreased attenuation in the white matter most suggestive of small vessel ischemic disease. No definite acute territorial infarct is seen at this time. Midline shift: None. Brainstem/Cerebellum: Normal. Calvarium: Normal. Visualized Paranasal sinuses/Mastoids: Clear. Soft Tissues: Unremarkable. Enhancement: Unremarkable. CTA Neck W: Common Carotid: Right: No dissection, occlusion or significant stenosis. Mild atherosclerosis is seen in the distal common carotid artery. Left: No dissection, occlusion or significant stenosis. Atherosclerosis is seen in the distal left common carotid artery. External Carotid: Right: No occlusion or significant stenosis. Left: No occlusion or significant stenosis. Internal Carotid: Right: No dissection, occlusion or significant stenosis. There is mild atherosclerosis seen at the origin of the internal carotid artery. Left: No dissection, occlusion or significant stenosis. Mild atherosclerotic calcification is seen at the origin of the internal carotid artery. Vertebral Artery: Right: No dissection, occlusion or significant stenosis. Left: No dissection, occlusion or significant stenosis. Lung Apices: Normal. Bones: Within normal limits for the patient's age. Soft Tissues: Normal. Thyroid gland: Tiny hypodense nodules are seen in the thyroid gland. No follow-up is recommended. CTA Brain W: Internal Carotid Arteries: Atherosclerotic calcification is seen in the cavernous portions of the internal carotid arteries bilaterally. No significant stenosis or occlusion is seen. Anterior Cerebral Arteries: Right: No aneurysm, occlusion or significant stenosis. Left: No aneurysm, occlusion or significant stenosis. Middle Cerebral Arteries: Right: There is a hyperdense adjacent to the right insula corresponding to an M2 segment of the right middle cerebral artery corresponding likely to intraluminal thromboembolic material. There is decreased opacification of the vessels distally on the postcontrast images. (Series 5 images 32 through 35). Left: No aneurysm, occlusion or significant stenosis. Posterior Cerebral Arteries: Right: No aneurysm, occlusion or significant stenosis. Left: No aneurysm, occlusion or significant stenosis. Vertebral Arteries: Right: No aneurysm, occlusion or significant stenosis. Left: No aneurysm, occlusion or significant stenosis. Basilar Artery: No aneurysm, occlusion or significant stenosis. IMPRESSION: 1. Thromboembolic occlusion is seen at an M2 branch of the right middle cerebral artery (series 5, images 32-35). No mass effect is seen at this time. 2. No acute intracranial hemorrhage is present. There is no midline shift or mass effect present at this time. There are findings of decreased attenuation in the white matter consistent with chronic microvascular ischemic disease. 3. No occlusion or significant stenosis on the CT angiography of the neck. 4. Findings were discussed with Dr. Piedra at 2:50 p.m. on 06/28/2024. Quality:[facility] Health Related Social Needs: No Data to Display Critical Care Time Critical Care Time Critical Care Time: Yes Total Critical Care Time: 95 Attestation: Upon my evaluation, this patient had a high probability of imminent or life-threatening deterioration, which required my direct attention, intervention, and personal management. I have personally provided 95 minutes of critical care time exclusive of time spent on separately billable procedures. Time includes review of laboratory data, radiology results, discussion with consultants, and monitoring for potential decompensation. Interventions were performed as documented. PFSH All Active Problems (Updated 06/28/24 @ 15:38 by Bienvenido Piedra, ) Ischemic embolic stroke (Acute) Referred otalgia of left ear (Acute) Seborrheic keratoses (Acute) Dry skin (Acute) Compulsive skin picking (Acute) Pruritic rash (Acute) Prurigo nodularis (Acute) COVID-19 (Acute) Medical History History of malignant melanoma Systemic lupus erythematosus GERD (gastroesophageal reflux disease) Degeneration of thoracic intervertebral disc Diverticulitis of colon Essential hypertension Paroxysmal atrial fibrillation Non-alcoholic fatty liver disease Sjogrens syndrome Social History Smoking/Tobacco Use Status: Former Tobacco Use Smoking risk assessment performed?: Yes Alcohol Intake: current Alcohol Intake frequency: holidays/special occasions only Drug use: Never Substance use type: does not use Do you feel safe at home: Yes Do you feel safe in your relationship?: Yes
[2024-06-28] MEDS: niCARdipine 25 MG in Normal Saline 240 ML 50 MG IV (15:28)
[2024-06-28] MEDS: Tenecteplase 50 MG KIT 20 MG IVP (15:33)
[2024-06-28] MEDS: ACETAMINOPHEN 1,000 MG/100 ML BAG 400 MG IVPB (16:02)
[2024-06-28 16:30] LABS: Troponin I 15 ng/L (<or=51)
== END 2024-06-28 16:34 | disposition short-term general hospital (02) ==
PROVIDERS: Emergency Provider Student in an Organized Health Care Education/Training Program; PCP Nurse Practitioner Primary Care
DX: I63.9 Cerebral infarction, unspecified (principal)
CPT/HCPCS: 36415; 36416; 70496; 70498; 80053; 82962; 93005; 96365; 96375; 99291; 83735; 84443; 84484; 85025; 85610; 93010; J0131; J1920; J2404; J3101

== ENCOUNTER 2024-08-19 13:16 | Emergency (ER) | payer MEDICARE, MEDICAID, SELFPAY ==
[2024-08-19] VITALS (23 sets, daily range): BP systolic 118–150; BP diastolic 72–93; PULSE 72–131; RESP 11–20; TEMP 36.4–37.1; O2SAT 92–99
--- NOTE | 2024-08-19 13:15 | RT.EKG_ITS ---
APPROVED REPORT Exam: Resting ECG Reason for Exam: TIA Patient Location: E HR:128 bpm ECG Measurements Heart Rate 128 AXIS DC 138 P 57 QRSd 85 QRS 39 QT 320 T 37 QTc 468 Conclusion Sinus tachycardia 128 normal interval, no stemi
[2024-08-19 14:06] LABS: Abs Immature Grans 0.01 10^3/uL (0.0-0.06); Absolute Basophil Count 0.04 10^3/uL (0.0-0.2); Absolute Eosinophil Count 0.14 10^3/uL (0.0-0.7); Absolute Lymphocyte Count 0.96 10^3/uL (1.2-3.4); Absolute Monocyte Count 0.29 10^3/uL (0.1-0.8); Absolute Neutrophil Count 2.93 10^3/uL (1.2-6.7); Basophils % 0.9 %; Eosinophils % 3.2 %; HCT 34.7 % (36.0-46.0); Immature Grans % 0.2 %; MCH 32.8 pg (27.0-33.0); MCHC 34.6 % (32.0-36.0); MCV 95 fL (80-95); MPV 10.7 fL (8.0-11.0); Monocytes % 6.6 %; Neutrophils % 67.1 %; Platelet Count 160 10^3/uL (130-400); RBC 3.66 10^6/uL (3.93-5.22); RDW 12.5 % (11.7-14.6); RDW-SD 43.7 fL; WBC 4.37 10^3/uL (4.4-10.8)
[2024-08-19 14:16] LABS: INR 1.1 (0.9-1.1); Prothrombin Time 10.7 sec (9.1-11.1)
[2024-08-19 14:28] LABS: ALT 42 U/L (14-59); AST 28 U/L (15-37); Albumin 3.6 g/dL (3.4-5.0); Alkaline Phosphatase 108 U/L (46-116); Anion Gap 12.8 mmol/L (3-11); BUN 45 mg/dL (7-18); Bilirubin, Total 0.5 mg/dL (0.2-1.0); CO2 20.2 mmol/L (21.0-32.0); CREATININE 1.6 mg/dL (0.55-1.02); Calcium 9.4 mg/dL (8.5-10.1); Chloride 103 mmol/L (98-107); Estimated GFR 33.84 (mL/min/1.73m2); Glucose 312 mg/dL (74-106); Magnesium 1.7 mg/dL (1.8-2.4); Potassium 3.5 mmol/L (3.5-5.1); Sodium 136 mmol/L (136-145); TSH (W/Ref FT4) 4.79 uIU/mL (0.36-3.74); Troponin I 18 ng/L (<or=51)
--- NOTE | 2024-08-19 14:30 | DI.CT_ITS ---
Exam(s) CT HEAD WO EXAM: CT HEAD WO CLINICAL HISTORY: headache. TECHNIQUE: Imaging Protocol: Axial computed tomography images with coronal and sagittal reformatted images were created and reviewed COMPARISON: CT CT BRAIN NECK CTA from 06/28/2024 FINDINGS: There are no skull fractures. There is no fluid in the visualized paranasal sinuses. There is an area of nonhemorrhagic infarct in the territory the right middle cerebral artery posterio r temporal/parietal region. This was not evident on images of 06/28/2024. There is no evidence of h emorrhage, intra or extra-axial. Ventricles are not enlarged or shifted and there is no blood within the ventricular system nor within the basal cisterns. Vascular calcification is noted in both vertebral arteries at the skull base. IMPRESSION: There is a significant area of nonhemorrhagic infarct in the right temporal-parietal lobe (posterior territory right middle cerebral artery). Report called by myself to ER physician 08/19/2024 at 3:47 p.m. RADIATION DOSE DELIVERED: 831.33mGy.cm Total DLP DATA REPOSITORY: All CT scans at this facility are submitted to the National Radiology Data Registry (NRDR) Dose Index Registry (DIR) with the [employer] (ACR). RADIATION OPTIMIZATION: All CT scans at this facility use at least one of these dose optimization te chniques: automated exposure control; mA and/or kV adjustment per patient size (includes targeted exa ms where dose is matched to clinical indication); or iterative reconstruction.
--- NOTE | 2024-08-19 14:40 | ED.GENADUL_ITS ---
Discharge Plan Disposition Patient Disposition: Home Condition: Stable Discharge Details Clinical Impression: Headache, Tachycardia, Mild dehydration, VANE (acute kidney injury) Primary Care Provider: Jordan Sinclair ED Provider: Fran Candelario Home Meds and New Rx's Prescriptions: No Action ProAir RespiClick 90 mcg/actuation aerosol powdr breath activated 2 inh inhalation Q4H PRN sertraline 50 mg tablet 50 mg PO DAILY atorvastatin 40 mg tablet 40 mg PO DAILY losartan 50 mg tablet 50 mg PO DAILY docusate sodium [DOK] 100 mg tablet 100 mg PO DAILY triamcinolone acetonide 0.1 % lotion 1 applic topical BID 14 Days Qty: 60 2RF metoprolol succinate 25 mg Tablet Extended Release 24 Hr 50 mg PO DAILY insulin glargine [Lantus Solostar U-100 Insulin] 100 unit/mL (3 mL) Insulin Pen 14 unit SUBCUT QAM Eliquis 5 mg tablet 5 mg PO BID Patient Comments: TAKE 1 TABLET BY MOUTH TWICE DAILY DIRECTED pantoprazole 40 mg tablet,delayed release (DR/EC) 40 mg PO DAILY Patient Comments: TAKE 1 TABLET BY MOUTH DAILY Discharge Instructions Additional Instructions: Your lab work today looks like you might be a little dehydrated. Your heart rate came down with IV fluids. Your heart enzymes and EKG do not reveal any acute process concerning for heart attack. Your CT scan shows your stroke, but no new process. Please follow up with your PCP soon to monitor your kidney function. Return to the ED with any symptoms. HPI General Date/Time Provider Initiated Documentation: 08/19/24 13:26 . Limitations to Documentation: no limitations . Information obtained by: patient . HPI Narrative: 74-year-old female with past medical history of recent diagnosis of CVA presents for evaluation of jaw pain headache and palpitations. She reports that the symptoms started today. She got out of the hospital about a week ago after stroke treatment. She reports that she has been compliant with all of her new medications. Eating and drinking fine. She denies any chest pain or shortness of breath. She does report that she drinks lots of water. Related Data Home Medications ?Medication ?Instructions ?Recorded ?Confirmed insulin glargine 100 unit/mL (3 14 unit subcut QAM 01/11/22 08/19/24 mL) subcutaneous pen (Lantus Solostar U-100 Insulin) metoprolol succinate 25 mg 50 mg PO DAILY 01/11/22 08/19/24 tablet,extended release 24 hr albuterol sulfate 90 mcg/actuation 2 inh inhalation Q4H PRN 12/07/22 08/19/24 breath activated powder inhaler (ProAir RespiClick) atorvastatin 40 mg tablet 40 mg PO DAILY 12/07/22 08/19/24 docusate sodium 100 mg tablet (DOK) 100 mg PO DAILY 12/07/22 08/19/24 losartan 50 mg tablet 50 mg PO DAILY 12/07/22 08/19/24 sertraline 50 mg tablet 50 mg PO DAILY 12/07/22 08/19/24 triamcinolone acetonide 0.1 % 1 applic topical BID 14 days #60 mL 12/09/22 08/19/24 lotion apixaban 5 mg tablet (Eliquis) 5 mg PO BID 08/19/24 08/19/24 pantoprazole 40 mg tablet,delayed 40 mg PO DAILY 08/19/24 08/19/24 release Previous Rx's ?Medication ?Instructions ?Recorded triamcinolone acetonide 0.1 % 1 applic topical BID 14 days #60 mL 12/09/22 lotion Allergies Allergy/AdvReac Type Severity Reaction Status Date / Time Penicillins Allergy Hives Unverified 06/28/24 15:56 lisinopril AdvReac Mild Dizziness/L Verified 06/28/24 15:56 ighthead empagliflozin (From AdvReac Unknown Verified 06/28/24 15:56 Jardiance) General Stated Complaint: CVA/TIA IRAIDA: 2 Exam Narrative Exam Narrative: Review of Systems: All systems reviewed & are unremarkable except as noted in HPI and below Well-developed, no acute distress NCAT Small tachycardia Unlabored respiratory effort clear bilaterally Nondistended abdomen Extremities w/o edema no focal neurologic deficits Course Vital Signs Vital signs: Vital Signs Temperature 36.4 C L 08/19/24 13:19 Pulse 131 H 08/19/24 13:19 Respiratory Rate 16 08/19/24 13:19 Blood Pressure 125/74 08/19/24 13:19 Pulse Oximetry 98 08/19/24 13:19 Temperature 36.4 C L 08/19/24 13:19 Temperature Source Oral 08/19/24 13:19 Pulse 131 H 08/19/24 13:19 Respiratory Rate 16 08/19/24 13:19 Blood Pressure 125/74 08/19/24 13:19 Pulse Oximetry 98 08/19/24 13:19 Pain Level 9 08/19/24 13:19 Lab/Test Results Lab/Test Results: Laboratory Tests Range/Units 08/19/24 13:50 WBC (4.4-10.8) 10^3/uL 4.37 L RBC (3.93-5.22) 10^6/uL 3.66 L Hgb (11.2-15.7) g/dL 12.0 Hct (36.0-46.0) % 34.7 L MCV (80-95) fL 95 MCH (27.0-33.0) pg 32.8 MCHC (32.0-36.0) % 34.6 RDW (11.7-14.6) % 12.5 Plt Count (130-400) 10^3/uL 160 MPV (8.0-11.0) fL 10.7 Immature Gran % % 0.2 Neutrophils % % 67.1 Lymphocytes % % 22.0 Monocytes % % 6.6 Eosinophils % % 3.2 Basophils % % 0.9 Nucleated RBC % (0.0-0.3) % 0.0 Absolute Neutrophils (1.2-6.7) 10^3/uL 2.93 Absolute Lymphocytes (1.2-3.4) 10^3/uL 0.96 L Absolute Monocytes (0.1-0.8) 10^3/uL 0.29 Absolute Eosinophils (0.0-0.7) 10^3/uL 0.14 Absolute Basophils (0.0-0.2) 10^3/uL 0.04 PT (9.1-11.1) sec 10.7 INR (0.9-1.1) 1.1 Sodium (136-145) mmol/L 136 Potassium (3.5-5.1) mmol/L 3.5 Chloride (98-107) mmol/L 103 Carbon Dioxide (21.0-32.0) mmol/L 20.2 L Anion Gap (3-11) mmol/L 12.8 H BUN (7-18) mg/dL 45 H Creatinine (0.55-1.02) mg/dL 1.6 H Est GFR (CKD-EPI 2020) (mL/min/1.73m2) 33.84 Glucose (74-106) mg/dL 312 H Calcium (8.5-10.1) mg/dL 9.4 Magnesium (1.8-2.4) mg/dL 1.7 L Total Bilirubin (0.2-1.0) mg/dL 0.5 AST (15-37) U/L 28 ALT (14-59) U/L 42 Alkaline Phosphatase (46-116) U/L 108 Troponin I (<or=51) ng/L 18 Total Protein (6.4-8.2) g/dL 8.0 Albumin (3.4-5.0) g/dL 3.6 TSH (0.36-3.74) uIU/mL 4.79 H Medical Decision Making Emergent evaluation of palpitations, jaw pain and headache. Initial differential includes ACS, hemorrhagic transformation of recent CVA, dehydration. Patient is noted to be slightly slightly tachycardic she is on metoprolol daily so this seems unusual. Her blood pressure is not elevated. She does report compliance with this medication. EKG reviewed is sinus tachycardia 128, there are definitely P waves and I do not suspect suspect an atrial dysrhythmia. Initial differential includes electrolyte abnormality, dehydration. Will send lab work, continue telemetry monitoring and get head CT to evaluate for any post CVA abnormality. labs reviewed, mild elevation in BUN and CR, perhaps dehydration. IV fluids given, which resolved tachycardia. CT discussed with radiologist, obvious signs of completed stroke consistent with prior diagnosis, but no acute findings today. Patient was reevaluated and reports complete resolution of her symptoms. Suspect that the headache might have had to do with a little bit of dehydration as well. Recommend that the patient follow-up closely with her PCP for reevaluation of her renal function to make sure that she does not have any ongoing issues related to medication changes or overdiuresis. The patient was provided with return precautions and discharged. Quality:SDOH Health Related Social Needs: No Data to Display PFSH All Active Problems (Updated 08/19/24 @ 15:27 by Fran Candelario MD) VANE (acute kidney injury) (Acute) Mild dehydration (Acute) Tachycardia (Acute) Headache (Acute) Referred otalgia of left ear (Acute) Seborrheic keratoses (Acute) Dry skin (Acute) Compulsive skin picking (Acute) Pruritic rash (Acute) Prurigo nodularis (Acute) COVID-19 (Acute) Medical History History of malignant melanoma Systemic lupus erythematosus GERD (gastroesophageal reflux disease) Degeneration of thoracic intervertebral disc Diverticulitis of colon Essential hypertension Paroxysmal atrial fibrillation Non-alcoholic fatty liver disease Sjogrens syndrome Social History Smoking/Tobacco Use Status: Former Tobacco Use Smoking risk assessment performed?: Yes Alcohol Intake: current Alcohol Intake frequency: holidays/special occasions only Drug use: Never Substance use type: does not use Do you feel safe at home: Yes Do you feel safe in your relationship?: Yes
[2024-08-19 14:46] LABS: FREE T4 0.84 ng/dL (0.76-1.46)
[2024-08-19] MEDS: Normal Saline 1,000 ML 1000 ML IV (14:55)
[2024-08-19 15:04] LABS: Troponin I 23 ng/L (<or=51)
== END 2024-08-19 16:24 | disposition home or self-care (01) ==
PROVIDERS: Emergency Provider Emergency Medicine; PCP Student in an Organized Health Care Education/Training Program
DX: R00.0 Tachycardia, unspecified (principal); R51.9 Headache, unspecified; N17.9 Acute kidney failure, unspecified; E86.0 Dehydration; Z86.79 Personal history of other diseases of the circulatory system; R68.84 Jaw pain
CPT/HCPCS: 99284 ×2; 36415; 36416; 82962; 80053; 93005; 96360; 70450; 83735; 84439; 84443; 84484; 85025; 85610; 93010

== ENCOUNTER 2024-09-11 10:50 | Outpatient (REF) | payer MEDICARE, MEDICAID, SELFPAY ==
[2024-09-11 16:09] LABS: Anion Gap 15.2 mmol/L (3-11); BUN 48 mg/dL (7-18); CO2 20.8 mmol/L (21.0-32.0); CREATININE 1.2 mg/dL (0.55-1.02); Calcium 9.5 mg/dL (8.5-10.1); Chloride 105 mmol/L (98-107); Glucose 249 mg/dL (74-106); Magnesium 1.9 mg/dL (1.8-2.4); Potassium 4.3 mmol/L (3.5-5.1); Sodium 141 mmol/L (136-145)
== END 2024-09-11 10:51 | disposition home or self-care (01) ==
LOC: NCHCN 10:50
PROVIDERS: PCP Student in an Organized Health Care Education/Training Program; Visit Provider Student in an Organized Health Care Education/Training Program
DX: N17.9 Acute kidney failure, unspecified (principal)
CPT/HCPCS: 80048; 83735

== ENCOUNTER 2024-10-28 12:44 | Observation (INO) | payer MEDICARE, MEDICAID, SELFPAY ==
[2024-10-28] VITALS (40 sets, daily range): BP systolic 96–159; BP diastolic 55–85; PULSE 57–78; RESP 10–21; TEMP 36.4–36.9; O2SAT 94–100
--- NOTE | 2024-10-28 12:45 | RT.EKG_ITS ---
APPROVED REPORT Exam: Resting ECG Reason for Exam: Facial droop Patient Location: E HR:61 bpm ECG Measurements Heart Rate 61 AXIS ME 158 P 3 QRSd 91 QRS 52 QT 441 T 15 QTc 445 Conclusion Sinus rhythm...normal P axis, V-rate 60- 99 Low voltage, precordial leads...precordial leads <1.0mV No Occlusion GA
--- NOTE | 2024-10-28 12:45 | DI.CT_ITS ---
Exam(s) CT BRAIN NECK CTA EXAM: CT BRAIN NECK CTA CLINICAL HISTORY: Right facial droop. TECHNIQUE: Imaging Protocol: Axial CT angiography was performed with multi- slice acquisition and multi-planar and/or 3D reconstructions. CONTRAST MATERIAL: Intravenous: Omnipaque 350 contrast volume:70 mL COMPARISON: CT CT BRAIN NECK CTA from 06/28/[address] HEAD WO from 08/19/2024 FINDINGS: CT Head W/O and W: Ventricles and Extra axial spaces: Normal in size and morphology for the patient's age. Hemorrhage: None. Cerebral parenchyma: There is again seen a right MCA distribution infarct which appears stable. No new mass effect is seen. No acute areas of decreased attenuation are seen. There are areas of decreased attenuation in the white matter suggesting chronic microvascular ischemic disease. Midline shift: None. Brainstem/Cerebellum: Normal. Calvarium: Normal. Visualized Paranasal sinuses/Mastoids: There is mild mucosal thickening in the right maxillary sinus. The remaining visualized paranasal sinuses and mastoid air cells are clear. Soft Tissues: Unremarkable. Enhancement: Unremarkable. CTA Neck W: Common Carotid: Right: No dissection, occlusion or significant stenosis. Left: No dissection, occlusion or significant stenosis. Atherosclerotic calcification is seen at the distal common carotid artery without significant stenosis. External Carotid: Right: No occlusion or significant stenosis. Left: No occlusion or significant stenosis. Internal Carotid: Right: No dissection, occlusion or significant stenosis. There is mild atherosclerotic calcification at the origin without significant stenosis. Left: No dissection, occlusion or significant stenosis. Vertebral Artery: Right: No dissection, occlusion or significant stenosis. Left: No dissection, occlusion or significant stenosis. Lung Apices: Normal. Bones: Within normal limits for the patient's age. Soft Tissues: Normal. Thyroid gland: There are few small nodule seen within the thyroid gland. No follow-up is recommended. CTA Brain W: Internal Carotid Arteries: Atherosclerotic calcification is seen in the cavernous internal carotid arteries bilaterally. No significant stenosis, occlusion or aneurysm is seen. Anterior Cerebral Arteries: Right: No aneurysm, occlusion or significant stenosis. Left: No aneurysm, occlusion or significant stenosis. Middle Cerebral Arteries: Right: No aneurysm, occlusion or significant stenosis. Left: No aneurysm, occlusion or significant stenosis. Posterior Cerebral Arteries: Right: No aneurysm, occlusion or significant stenosis. Left: No aneurysm, occlusion or significant stenosis. Vertebral Arteries: Right: No aneurysm, occlusion or significant stenosis. Left: No aneurysm, occlusion or significant stenosis. Basilar Artery: No aneurysm, occlusion or significant stenosis. IMPRESSION: 1. No large vessel occlusion or significant stenosis on the CT angiography of the head. 2. No acute intracranial process. 3. Old large right MCA distribution infarct. 4. No occlusion or significant stenosis on the CT angiography of the neck. RADIATION DOSE DELIVERED: 2,059.65mGy.cm Total DLP DATA REPOSITORY: All CT scans at this facility are submitted to the National Radiology Data Registry (NRDR) Dose Index Registry (DIR) with the [employer] (ACR). RADIATION OPTIMIZATION: All CT scans at this facility use at least one of these dose optimization techniques: automated exposure control; mA and/or kV adjustment per patient size (includes targeted exams where dose is matched to clinical indication); or iterative reconstruction.
--- NOTE | 2024-10-28 12:47 | ED.PROG_ITS ---
Date of service: 10/28/24 Time of Service: 12:47 Medical Decision Making 74-year-old female with a past medical history of CVA presents with right sided facial droop while at physical therapy. Hx of CVA in July and was transferred at that time. She has mild right tongue deviation to the right, Able to raise b oth eyebrows, and puff out her cheeks. Reports mild headache, no recent falls. BGL 214 upon arrival. Does take Eliquis. Just ate and had small amount coffee [employer]. BP 96/67. Daughter Yumi states she was not herself this weekend reports called 911 was confused and lethargic this weekend. Had CVA in August 2024, appears more like TIA. CVA workup labs ordered including CTA brain and neck. At this time patient does not appear to qualify for fibrinolytic therapy due to her history and presentation. Patient triaged back to ER room. This text was generated using [employer] dictation system, please disregard any oddities of phrase or misspellings. Discharge Plan Disposition Patient Disposition: Admit to [facility] Discharge Details Clinical Impression: Facial droop Admit Date/Time: 10/28/24 16:35 Admit Provider: Rohit Zhang Attending Provider: Rohit Zhang Primary Care Provider: Jordan Sinclair ED Provider: Kendell Kaur Discharge Data Discharge Date/Time-TO BE ENTERED AT DEPARTURE: 10/28/24 18:33
--- NOTE | 2024-10-28 12:53 | W.ED.GENAD ---
Discharge Plan Disposition Patient Disposition: Admit to [facility] Discharge Details Clinical Impression: Facial droop Primary Care Provider: Jordan Sinclair ED Provider: Kendell Kaur Home Meds and New Rx's Prescriptions: No Action ProAir RespiClick 90 mcg/actuation aerosol powdr breath activated 2 inh inhalation Q4H PRN atorvastatin 40 mg tablet 40 mg PO DAILY losartan 50 mg tablet 50 mg PO DAILY triamcinolone acetonide 0.1 % lotion 1 applic topical BID 14 Days Qty: 60 2RF metoprolol succinate 25 mg Tablet Extended Release 24 Hr 50 mg PO DAILY insulin glargine [Lantus Solostar U-100 Insulin] 100 unit/mL (3 mL) Insulin Pen 14 unit SUBCUT QAM tizanidine 2 mg tablet prazosin 1 mg capsule Patient Comments: TAKE 1 CAPSULE BY MOUTH EVERY NIGHT sertraline 100 mg tablet Patient Comments: TAKE 1 TABLET BY MOUTH EVERY DAY (DME) Accu-Chek Rosario Plus test strp Strip MISCELLANEOUS Patient Comments: USE 1 STRIP THREE TIMES DAILY FOR DIABETES amlodipine 5 mg tablet Patient Comments: TAKE 1 TABLET BY MOUTH EVERY DAY chlorthalidone 50 mg tablet Patient Comments: TAKE 1 TABLET BY MOUTH EVERY DAY DIRECTED (DME) lancets [Accu-Chek Fastclix Lancet Drum] Misc MISCELLANEOUS Patient Comments: USE DIRECTED THREE TIMES DAILY FOR DIABETES insulin lispro [Humalog KwikPen Insulin] 100 unit/mL insulin pen SUBCUT Patient Comments: INJECT 4 UNITS UNDER THE SKIN WITH MEALS UP TO 3 TIMES DAILY MAX DAILY DOSE IS 12 UNITS Eliquis 5 mg tablet 5 mg PO BID Patient Comments: TAKE 1 TABLET BY MOUTH TWICE DAILY DIRECTED pantoprazole 40 mg tablet,delayed release (DR/EC) 40 mg PO DAILY Patient Comments: TAKE 1 TABLET BY MOUTH DAILY HPI General Date/Time Provider Initiated Documentation: 10/28/24 12:47. HPI Narrative: MDM This is an overall well-appearing mildly hypotensive afebrile and not tachycardic 74-year-old female with prior history of CVA with right-sided facial droop concerning for acute CVA versus recrudescence of prior CVA versus TIA. Patient is not a TNK candidate secondary to her apixaban use. Will touch base with neurology at [facility] [place] [facility] for further recommendations following CT head and CT angiogram. Patient complains of intermittent abdominal symptoms. She has a soft abdomen so doubt feel that she requires an emergent CT scan. Given her lack of abdominal tenderness and not suspicious for appendicitis or diverticulitis. No nuchal rigidity to suggest meningitis so no indication for lumbar puncture. No tonic-clonic activity f to suggest or seizure so no indication for EEG. No chest pain to suggest aortic dissection so no indication for antihypertensive medications nor CT angiogram of chest. No rash to suggest zoster. Rather will allow permissive hypertension is most suspicion is low for intracranial hemorrhage. Will reassess following neurology consultation. 4:12 PM CBC lacks anemia thrombocytopenia and leukocytosis. Comprehensive metabolic panel showing no VANE. CKD. Mild anion gap. Normal bicarbonate. Mild hyperglycemia. Not consistent with DKA. Troponins flat. I spoke with Dr. Jennings from neurology who advised aspirin load and hospitalization for MRI telemetry and echocardiogram. Patient's symptoms may be mildly improving. I was in touch with Dr. Zhang who graciously agreed to accept the patient for hospitalization. HPI This is a patient with a history of a major stroke in 07/2024 presenting with right-sided facial droop. The patient attended a physical therapy session today, during which her therapist noticed a droop on the right side of her face, the same side affected by her previous stroke. The patient reports feeling well overall and has not experienced any recent seizures or fevers. Over the weekend, she experienced an episode where her daughter noted she appeared lethargic, but it did not resemble a seizure. The patient reports no burning sensation during urination, abdominal pain, or chest pain. She has been experiencing digestive issues for some time but does not believe they are related to her current symptoms. She does not have a thermometer at home to check for fever but has not felt unusually warm. Exam General: Well-appearing in no acute distress speaking in complete sentences. Head: Normocephalic, atraumatic. Eye:[Pupils equal, round reactive to light.] Extraocular eye movements intact. No conjunctival injection. No scleral icterus. Ear, nose, mouth, throat: Grossly normal inspection. Normal voice, handling secretions normally. Neck: Trachea midline. Cardiovascular: Well-perfused distal extremities. Regular rate and rhythm Respiratory: Nonlabored respiration. Clear lungs bilaterally Gastrointestinal: Nondistended abdomen. Soft nontender Musculoskeletal: No edema. Moving all 4 extremities spontaneously. Skin: Normal for age and race, grossly normal temperature and turgor. No acute rash. Neurologic: Alert and appropriate, no apparent acute deficits. GCS 15. Mild right-sided facial droop. No pronator drift. Intact finger-nose. 5 out of 5 bilateral upper and lower extremity strength. Psychiatric: Mood and manner are appropriate. Grooming and personal hygiene are appropriate. Related Data Home Medications ?Medication ?Instructions ?Recorded ?Confirmed insulin glargine 100 unit/mL (3 14 unit subcut QAM 01/11/22 10/28/24 mL) subcutaneous pen (Lantus Solostar U-100 Insulin) metoprolol succinate 25 mg 50 mg PO DAILY 01/11/22 10/28/24 tablet,extended release 24 hr albuterol sulfate 90 mcg/actuation 2 inh inhalation Q4H PRN 12/07/22 10/28/24 breath activated powder inhaler (ProAir RespiClick) atorvastatin 40 mg tablet 40 mg PO DAILY 12/07/22 10/28/24 losartan 50 mg tablet 50 mg PO DAILY 12/07/22 10/28/24 triamcinolone acetonide 0.1 % 1 applic topical BID 14 days #60 mL 12/09/22 10/28/24 lotion apixaban 5 mg tablet (Eliquis) 5 mg PO BID 08/19/24 10/28/24 pantoprazole 40 mg tablet,delayed 40 mg PO DAILY 08/19/24 10/28/24 release amlodipine 5 mg tablet mg 10/28/24 blood sugar diagnostic (Accu-Chek 10/28/24 10/28/24 Rosario Plus test strips) chlorthalidone 50 mg tablet mg 10/28/24 insulin lispro 100 unit/mL subcut 10/28/24 subcutaneous pen (Humalog KwikPen (U-100) Insulin) lancets (Accu-Chek Fastclix Lancet 10/28/24 10/28/24 Drum) prazosin 1 mg capsule mg 10/28/24 sertraline 100 mg tablet mg 10/28/24 tizanidine 2 mg tablet mg 10/28/24 Previous Rx's ?Medication ?Instructions ?Recorded triamcinolone acetonide 0.1 % 1 applic topical BID 14 days #60 mL 12/09/22 lotion Allergies Allergy/AdvReac Type Severity Reaction Status Date / Time Penicillins Allergy Hives Unverified 10/28/24 12:47 lisinopril AdvReac Mild Dizziness/L Verified 10/28/24 12:47 ighthead empagliflozin (From AdvReac Unknown Verified 10/28/24 12:47 Jardiance) General Stated Complaint: CVA/TIA IRAIDA: 2 Course Vital Signs Vital signs: Vital Signs Temperature 36.4 C L 10/28/24 12:45 Pulse 67 10/28/24 12:45 Respiratory Rate 16 10/28/24 12:45 Blood Pressure 96/67 L 10/28/24 12:45 Pulse Oximetry 97 10/28/24 12:45 Temperature 36.4 C L 10/28/24 12:45 Temperature Source Oral 10/28/24 12:45 Pulse 67 10/28/24 12:45 Respiratory Rate 16 10/28/24 12:45 Blood Pressure 96/67 L 10/28/24 12:45 Blood Pressure Position Sitting 10/28/24 12:45 Pulse Oximetry 97 10/28/24 12:45 Oxygen Delivery Method Room Air 10/28/24 12:45 Oxygen Flow Rate 0 10/28/24 12:45 Pain Level 0 10/28/24 12:45 PFSH All Active Problems (Updated 10/28/24 @ 16:18 by Kendell Kaur MD) Facial droop (Acute) Referred otalgia of left ear (Acute) Seborrheic keratoses (Acute) Dry skin (Acute) Compulsive skin picking (Acute) Pruritic rash (Acute) Prurigo nodularis (Acute) COVID-19 (Acute) Medical History History of malignant melanoma Systemic lupus erythematosus GERD (gastroesophageal reflux disease) Degeneration of thoracic intervertebral disc Diverticulitis of colon Essential hypertension Paroxysmal atrial fibrillation Non-alcoholic fatty liver disease Sjogrens syndrome Social History Smoking/Tobacco Use Status: Former Tobacco Use Smoking risk assessment performed?: Yes Alcohol Intake: current Alcohol Intake frequency: holidays/special occasions only Drug use: Never Substance use type: does not use Do you feel safe at home: Yes Do you feel safe in your relationship?: Yes
--- NOTE | 2024-10-28 13:00 | DI.RAD_ITS ---
Exam(s) XR CHEST 2V PA LATERAL EXAM: XR CHEST 2V PA LATERAL CLINICAL HISTORY: facial TECHNIQUE: 2D digital imaging was performed of the chest. Two images were obtained. PA and lateral views were obtained. COMPARISON: CR XR CHEST 2V PA LATERAL from 01/04/2024 FINDINGS: MEDIASTINUM: Normal. HEART: Normal. PULMONARY VASCULATURE: Normal. LUNGS: There are no focal consolidating infiltrates. PLEURAL SPACE: No pleural effusion or pneumothorax. BONE:Within normal limits for the patient's age. OTHER FINDINGS:Normal. IMPRESSION: No acute pulmonary findings. DATA REPOSITORY: RADIATION DOSE DELIVERED:
[2024-10-28 13:23] LABS: Abs Immature Grans 0.02 10^3/uL (0.0-0.06); HCT 36.0 % (36.0-46.0); HGB 12.5 g/dL (11.2-15.7); Immature Grans % 0.4 %; MCH 33.2 pg (27.0-33.0); MCHC 34.7 % (32.0-36.0); MCV 96 fL (80-95); MPV 10.7 fL (8.0-11.0); Platelet Count 206 10^3/uL (130-400); RBC 3.77 10^6/uL (3.93-5.22); RDW 12.3 % (11.7-14.6); RDW-SD 43.5 fL; WBC 5.65 10^3/uL (4.4-10.8)
[2024-10-28 13:52] LABS: ALT 27 U/L (14-59); AST 24 U/L (15-37); Albumin 3.6 g/dL (3.4-5.0); Alkaline Phosphatase 107 U/L (46-116); Anion Gap 12.7 mmol/L (3-11); BUN 42 mg/dL (7-18); Bilirubin, Total 0.5 mg/dL (0.2-1.0); CO2 24.3 mmol/L (21.0-32.0); Calcium 9.2 mg/dL (8.5-10.1); Chloride 103 mmol/L (98-107); Estimated GFR 43.42 (mL/min/1.73m2); Glucose 220 mg/dL (74-106); Magnesium 1.8 mg/dL (1.8-2.4); Potassium 3.4 mmol/L (3.5-5.1); Sodium 140 mmol/L (136-145); Total Protein 7.9 g/dL (6.4-8.2); Troponin I 13 ng/L (<or=51)
[2024-10-28] MEDS: Omnipaque 350 MG/ML 500 ML BTL-Imaging package IJ (14:07)
[2024-10-28] MEDS: Normal Saline - Diluent 50 ML VIAL IJ (14:10)
[2024-10-28 14:55] LABS: Troponin I 12 ng/L (<or=51)
[2024-10-28] MEDS: Normal Saline 500 ML IV (15:09)
--- NOTE | 2024-10-28 16:35 | W.PM.HP.N ---
Date of service: 10/28/24 Time of Service: 16:35 Assessment and Plan Assessment and plan (1) Facial droop: Status: Acute Assessment and plan: Referred to observation for stroke rule out Same right-sided facial droop from previous CVA No other symptoms (2) CVA (cerebral vascular accident): Status: Chronic Assessment and plan: History of previous CVA with right-sided weakness/facial droop CTA with no large vessel disease Teleneuro consultation Given aspirin load in the emergency department continue aspirin 81 mg daily High-dose statin Anticoagulated on apixaban for history of paroxysmal atrial fibrillation MRI pending for tomorrow (3) Paroxysmal atrial fibrillation: Status: Chronic Assessment and plan: Rate controlled continue Metroprolol Is fully anticoagulated on apixaban (4) Essential hypertension: Status: Chronic Assessment and plan: Allow for permissive hypertension Will place chlorthalidone amlodipine losartan on hold to allow for permissive hypertension Will continue Metroprolol succinate due to history of A-fib (5) GERD (gastroesophageal reflux disease): Status: Chronic Assessment and plan: Continue PPI (6) Diabetes mellitus: Status: Chronic Assessment and plan: Diabetic diet Blood sugar checks AC and at bedtime with sliding scale coverage as needed (7) Chronic kidney disease: Status: Chronic Assessment and plan: Avoid nephrotoxic drugs Renally dose meds as needed Follow electrolytes and kidney function closely (8) Hypokalemia: Status: Acute Assessment and plan: Replete and follow Magnesium level 1.8 (9) Discharge planning issues: Status: Acute History of Present Illness Narrative: right sided facial droop. Patient was attending physical therapy session today for history of CVA with residual right-sided weakness and while attending her therapist noticed that her facial droop seemed to be more pronounced. She had no complaints of headache blurred vision increased weakness or other new symptoms. Her workup in the emergency department included a CTA of the head and neck which showed no large vessel occlusion. She underwent a teleneurology consultation with recommendations for aspirin load and MRI. MRI unfortunately is no longer available at this time the day so she will be admitted overnight for hospitalist services for further monitoring and MRI tomorrow Review of Systems All systems reviewed & are unremarkable except as noted in HPI and below PFSH All Active Problems (Updated 10/28/24 @ 16:46 by Ana Corrales NP) Discharge planning issues (Acute) Hypokalemia (Acute) Chronic kidney disease (Chronic) Diabetes mellitus (Chronic) Paroxysmal atrial fibrillation (Chronic) Essential hypertension (Chronic) GERD (gastroesophageal reflux disease) (Chronic) CVA (cerebral vascular accident) (Chronic) Facial droop (Acute) Referred otalgia of left ear (Acute) Seborrheic keratoses (Acute) Dry skin (Acute) Compulsive skin picking (Acute) Pruritic rash (Acute) Prurigo nodularis (Acute) COVID-19 (Acute) Medical History History of malignant melanoma Systemic lupus erythematosus GERD (gastroesophageal reflux disease) Degeneration of thoracic intervertebral disc Diverticulitis of colon Essential hypertension Paroxysmal atrial fibrillation Non-alcoholic fatty liver disease Sjogrens syndrome Social History Smoking/Tobacco Use Status: Former Tobacco Use Smoking risk assessment performed?: Yes Alcohol Intake: current Alcohol Intake frequency: holidays/special occasions only Drug use: Never Substance use type: does not use Do you feel safe at home: Yes Do you feel safe in your relationship?: Yes Meds Allergies and Home Medications Allergies Allergy/AdvReac Type Severity Reaction Status Date / Time Penicillins Allergy Hives Unverified 10/28/24 12:47 lisinopril AdvReac Mild Dizziness/L Verified 10/28/24 12:47 ighthead empagliflozin (From AdvReac Unknown Verified 10/28/24 12:47 Jardiance) Home Medications ?Medication ?Instructions ?Recorded ?Confirmed ?Type insulin glargine 100 unit/mL (3 14 unit subcut QAM 01/11/22 10/28/24 History mL) subcutaneous pen (Lantus Solostar U-100 Insulin) metoprolol succinate 25 mg 50 mg PO DAILY 01/11/22 10/28/24 History tablet,extended release 24 hr albuterol sulfate 90 mcg/actuation 2 inh inhalation Q4H PRN 12/07/22 10/28/24 History breath activated powder inhaler (ProAir RespiClick) atorvastatin 40 mg tablet 40 mg PO DAILY 12/07/22 10/28/24 History losartan 50 mg tablet 50 mg PO DAILY 12/07/22 10/28/24 History triamcinolone acetonide 0.1 % 1 applic topical BID 14 days #60 mL 12/09/22 10/28/24 Rx lotion apixaban 5 mg tablet (Eliquis) 5 mg PO BID 08/19/24 10/28/24 History pantoprazole 40 mg tablet,delayed 40 mg PO DAILY 08/19/24 10/28/24 History release amlodipine 5 mg tablet mg 10/28/24 History blood sugar diagnostic (Accu-Chek 10/28/24 10/28/24 History Rosario Plus test strips) chlorthalidone 50 mg tablet mg 10/28/24 History insulin lispro 100 unit/mL subcut 10/28/24 History subcutaneous pen (Humalog KwikPen (U-100) Insulin) lancets (Accu-Chek Fastclix Lancet 10/28/24 10/28/24 History Drum) prazosin 1 mg capsule mg 10/28/24 History sertraline 100 mg tablet mg 10/28/24 History tizanidine 2 mg tablet mg 10/28/24 History Results Labs 10/28/24 13:01 10/28/24 13:01 Labs: Laboratory Results - last 24 hr 10/28/24 10/28/24 10/28/24 13:01 14:27 15:51 WBC 5.65 RBC 3.77 L Hgb 12.5 Hct 36.0 MCV 96 H MCH 33.2 H MCHC 34.7 RDW 12.3 Plt Count 206 MPV 10.7 Immature Gran % 0.4 Neutrophils % 65.1 Lymphocytes % 20.2 Monocytes % 7.8 Eosinophils % 5.3 Basophils % 1.2 Nucleated RBC % 0.0 Absolute Neutrophils 3.68 Absolute Lymphocytes 1.14 L Absolute Monocytes 0.44 Absolute Eosinophils 0.30 Absolute Basophils 0.07 Sodium 140 Potassium 3.4 L Chloride 103 Carbon Dioxide 24.3 Anion Gap 12.7 H BUN 42 H Creatinine 1.3 H Est GFR (CKD-EPI 2020) 43.42 Glucose 220 H Calcium 9.2 Magnesium 1.8 Total Bilirubin 0.5 AST 24 ALT 27 Alkaline Phosphatase 107 Troponin I 13 12 Cancelled Total Protein 7.9 Albumin 3.6 Last Vital Signs Temp 36.4 C L 10/28/24 12:45 Pulse 68 10/28/24 15:10 Resp 10 L 10/28/24 15:10 BP 116/77 10/28/24 15:10 Pulse Ox 96 10/28/24 15:10 Time Spent Time spent with Patient: 55-74 minutes Time was spent: preparing to see the patient(eg.review tests), obtaining and/or reviewing separately otained hiistory, ordering medications,tests, procedures, indepentently interpreting results and counseling the patient
[2024-10-28] MEDS: Aspirin 81 MG CHEW 324 MG CH (17:21)
[2024-10-28 17:50] LABS: Glucose Negative (Negative)
[2024-10-28 18:05] LABS: RBC Negative HPF (0-2)
[2024-10-28 18:06] LABS: C & S Indicated? No
--- NOTE | 2024-10-28 18:25 | W.PC.ACHO ---
Registration Status: REG ER Primary Language: Preferred Language: ED Information & Data Chief Complaint CVA/TIA 10/28/24 13:34 Triage Note droopy face in PT this 10/28/24 12:45 morning, hx CVA last year. Daughter reports some AMS over the weekend Medical / Surgical History (Last Reviewed 02/03/23 @ 09:48 by Sana Adkins RN) History of malignant melanoma Systemic lupus erythematosus Degeneration of thoracic intervertebral disc Diverticulitis of colon Non-alcoholic fatty liver disease Sjogrens syndrome Most Recent Vital Signs Temperature 36.4 C L 10/28/24 12:45 Temperature Source Oral 10/28/24 12:45 Pulse 75 10/28/24 17:31 Pulse 78 10/28/24 17:31 Respiratory Rate 19 10/28/24 17:31 Respiratory Effort Normal 10/28/24 13:12 Respiratory Depth Normal 10/28/24 13:12 Respiratory Pattern Normal 10/28/24 13:12 Blood Pressure 137/85 10/28/24 17:31 Blood Pressure Mean 101 10/28/24 17:31 Blood Pressure Position Sitting 10/28/24 12:45 Pulse Oximetry 99 10/28/24 17:31 Oxygen Delivery Method Room Air 10/28/24 12:45 Oxygen Flow Rate 0 10/28/24 12:45 Pain Level 0 10/28/24 12:45 Allergies Penicillins Allergy (Unverified 10/28/24 12:47) Hives lisinopril Adverse Reaction (Mild, Verified 10/28/24 12:47) Dizziness/Lighthead vertigo empagliflozin (From Jardiance) Adverse Reaction (Verified 10/28/24 12:47) Unknown Precautions Isolation Standard precaution 10/28/24 12:51 Active Medications Generic Name Dose Route Start Last Admin Trade Name Rosas PRN Reason Stop Dose Admin Insulin Aspart 0 units 10/28/24 17:00 10/28/24 17:47 Insulin Aspart 300 Units/3 Ml Pen SC Not Given 0800,1200,1700 JESUS Protocol Iohexol 500 ml 10/28/24 14:15 10/28/24 14:07 Omnipaque 350 Mg/Ml 500 Ml Btl-Imaging Package IJ 11/27/24 23:59 70 ml DIRECTED JESUS Administration Sodium Chloride 50 ml 10/28/24 14:15 10/28/24 14:10 Normal Saline - Diluent 50 Ml Vial IJ 50 ml .FOR DI USE JESUS Administration IV IV Catheter Type [Right Saline Lock Antecubital] IV Catheter Gauge [Right 18 Antecubital] Diagnostics 10/28/24 10/28/24 10/28/24 Range/Units 17:20 15:51 14:27 WBC (4.4-10.8) 10^3/uL RBC (3.93-5.22) 10^6/uL Hgb (11.2-15.7) g/dL Hct (36.0-46.0) % MCV (80-95) fL MCH (27.0-33.0) pg MCHC (32.0-36.0) % RDW (11.7-14.6) % Plt Count (130-400) 10^3/uL MPV (8.0-11.0) fL Immature Gran % % Neutrophils % % Lymphocytes % % Monocytes % % Eosinophils % % Basophils % % Nucleated RBC % (0.0-0.3) % Absolute Neutrophils (1.2-6.7) 10^3/uL Absolute Lymphocytes (1.2-3.4) 10^3/uL Absolute Monocytes (0.1-0.8) 10^3/uL Absolute Eosinophils (0.0-0.7) 10^3/uL Absolute Basophils (0.0-0.2) 10^3/uL Sodium (136-145) mmol/L Potassium (3.5-5.1) mmol/L Chloride (98-107) mmol/L Carbon Dioxide (21.0-32.0) mmol/L Anion Gap (3-11) mmol/L BUN (7-18) mg/dL Creatinine (0.55-1.02) mg/dL Est GFR (CKD-EPI 2020) (mL/min/1.73m2) Glucose (74-106) mg/dL Calcium (8.5-10.1) mg/dL Magnesium (1.8-2.4) mg/dL Total Bilirubin (0.2-1.0) mg/dL AST (15-37) U/L ALT (14-59) U/L Alkaline Phosphatase (46-116) U/L Troponin I Cancelled 12 (<or=51) ng/L Total Protein (6.4-8.2) g/dL Albumin (3.4-5.0) g/dL Urine Color Yellow (Yellow) Urine Clarity Clear (Clear) Urine pH 5.5 (5-8) Ur Specific [place] 1.010 (1.005-1.025) Urine Protein Negative (Neg-Trace) mg/dL Urine Ketones Negative (Negative) mg/dL Urine Blood Negative (Negative) Urine Nitrite Negative (Negative) Urine Bilirubin Negative (Negative) Urine Urobilinogen 0.2 (Up to 0.2) mg/dL Ur Leukocyte Esterase Trace H (Negative) Urine RBC Negative (0-2) HPF Urine WBC 3-5 (0-5) HPF Ur Epithelial Cells Rare (Negative) HPF Urine Crystals Negative (Negative) HPF Urine Bacteria Rare (Negative) HPF Urine Casts Negative (Negative) LPF Urine Mucus Negative (Negative) Ur Culture Indicated? No Urine Glucose Negative (Negative) mg/dL 10/28/24 Range/Units 13:01 WBC 5.65 (4.4-10.8) 10^3/uL RBC 3.77 L (3.93-5.22) 10^6/uL Hgb 12.5 (11.2-15.7) g/dL Hct 36.0 (36.0-46.0) % MCV 96 H (80-95) fL MCH 33.2 H (27.0-33.0) pg MCHC 34.7 (32.0-36.0) % RDW 12.3 (11.7-14.6) % Plt Count 206 (130-400) 10^3/uL MPV 10.7 (8.0-11.0) fL Immature Gran % 0.4 % Neutrophils % 65.1 % Lymphocytes % 20.2 % Monocytes % 7.8 % Eosinophils % 5.3 % Basophils % 1.2 % Nucleated RBC % 0.0 (0.0-0.3) % Absolute Neutrophils 3.68 (1.2-6.7) 10^3/uL Absolute Lymphocytes 1.14 L (1.2-3.4) 10^3/uL Absolute Monocytes 0.44 (0.1-0.8) 10^3/uL Absolute Eosinophils 0.30 (0.0-0.7) 10^3/uL Absolute Basophils 0.07 (0.0-0.2) 10^3/uL Sodium 140 (136-145) mmol/L Potassium 3.4 L (3.5-5.1) mmol/L Chloride 103 (98-107) mmol/L Carbon Dioxide 24.3 (21.0-32.0) mmol/L Anion Gap 12.7 H (3-11) mmol/L BUN 42 H (7-18) mg/dL Creatinine 1.3 H (0.55-1.02) mg/dL Est GFR (CKD-EPI 2020) 43.42 (mL/min/1.73m2) Glucose 220 H (74-106) mg/dL Calcium 9.2 (8.5-10.1) mg/dL Magnesium 1.8 (1.8-2.4) mg/dL Total Bilirubin 0.5 (0.2-1.0) mg/dL AST 24 (15-37) U/L ALT 27 (14-59) U/L Alkaline Phosphatase 107 (46-116) U/L Troponin I 13 (<or=51) ng/L Total Protein 7.9 (6.4-8.2) g/dL Albumin 3.6 (3.4-5.0) g/dL Urine Color (Yellow) Urine Clarity (Clear) Urine pH (5-8) Ur Specific [place] (1.005-1.025) Urine Protein (Neg-Trace) mg/dL Urine Ketones (Negative) mg/dL Urine Blood (Negative) Urine Nitrite (Negative) Urine Bilirubin (Negative) Urine Urobilinogen (Up to 0.2) mg/dL Ur Leukocyte Esterase (Negative) Urine RBC (0-2) HPF Urine WBC (0-5) HPF Ur Epithelial Cells (Negative) HPF Urine Crystals (Negative) HPF Urine Bacteria (Negative) HPF Urine Casts (Negative) LPF Urine Mucus (Negative) Ur Culture Indicated? Urine Glucose (Negative) mg/dL [id number] Documentation Fingerstick Glucose Start: 10/28/24 16:50 Freq: .ACHS Status: Active Protocol: Activity Type Activity Date Activity User E-sign Co-sign Detail Recorded Client Recorded Date Recorded By Document 10/28/24 17:42 BKG DAEMON(5) [id number] 10/28/24 17:43 BKG DAEMON(6) Intake and Output - 24 Hour Total 10/28/24 12:44 thru 10/28/24 12:45 Weight 74.843 kg Falls Risk Assessment History of Falls No History 10/28/24 14:29 Contributing Factors No Factors 10/28/24 14:29 Ambulatory Aids Independent 10/28/24 14:29 Tubes/Lines None 10/28/24 14:29 Gait Evaluation No gait disturbance 10/28/24 14:29 Cognition No cognitive impairment 10/28/24 14:29 Fall Total Score 0 10/28/24 14:29 Level of Risk Standard/Low Risk 10/28/24 14:29 Problems (Last Reviewed 02/03/23 @ 09:48 by Sana Adkins RN) Discharge planning issues (Acute) Hypokalemia (Acute) Chronic kidney disease (Chronic) Diabetes mellitus (Chronic) Paroxysmal atrial fibrillation (Chronic) Essential hypertension (Chronic) GERD (gastroesophageal reflux disease) (Chronic) CVA (cerebral vascular accident) (Chronic) Facial droop (Acute) v v v v v v v v v Sending and/or Receiving Nurses: Please use comment section below to note any information pertinent to the patient hand-off not included above. Information / Comments: AOx3, VSS, no complaining. neuro grossly intact Report received from: Richi
[2024-10-28] MEDS: Apixaban 5 MG TAB PO (21:18)
[2024-10-28] MEDS: Normal Saline Flush 10 ML SYR IVP (21:18)
[2024-10-28] MEDS: Acetaminophen 325 MG TAB 650 MG PO (21:21)
[2024-10-29 07:58] VITALS: BP 157/86; PULSE 67; RESP 17; TEMP 36.7; O2SAT 98
--- NOTE | 2024-10-29 08:00 | DI.MRI_ITS ---
Exam(s) MR BRAIN WO EXAM: MR BRAIN WO CLINICAL HISTORY: right sided facial droop. TECHNIQUE: Multiplanar multisequence MRI of the brain was performed. CONTRAST MATERIAL: Noncontrast COMPARISON: CT CT BRAIN NECK CTA from 10/28/2024 FINDINGS: VENTRICLES AND EXTRA AXIAL SPACES: Normal in size and morphology for the patient's age. HEMORRHAGE: None. CEREBRAL PARENCHYMA: No focus of restricted diffusion to suggest acute infarct. No space-occupying lesion identified. Old right MCA infarct again noted. Multiple foci high signal in the white matter consistent with microvascular disease. BRAINSTEM/CEREBELLUM: Normal. CALVARIUM: Normal. VISUALIZED PARANASAL SINUSES/MASTOIDS: Minimal mucous retention at the floor of the right maxillary sinus. Orbits: Unremarkable. Pituitary: Not enlarged. Vasculature: Normal ectatic basilar artery. IMPRESSION: Old right MCA territory infarct. No evidence of acute infarct or hemorrhage. DATA REPOSITORY:
[2024-10-29] MEDS: Atorvastatin 40 MG TAB 80 MG PO (08:01)
[2024-10-29] MEDS: Apixaban 5 MG TAB PO (08:01)
[2024-10-29] MEDS: Metoprolol CR 25 MG TABCR 50 MG PO (08:01)
[2024-10-29] MEDS: Pantoprazole 40 MG TABCR PO (08:02)
[2024-10-29] MEDS: Sertraline 100 MG TAB PO (08:02)
[2024-10-29] MEDS: Aspirin E.C. 81 MG TABEC PO (08:09)
[2024-10-29] MEDS: Insulin Aspart 300 UNITS/3 ML PEN SC ×2 (09:02→12:11)
[2024-10-29] MEDS: Normal Saline Flush 10 ML SYR IVP (09:02)
[2024-10-29] MEDS: Insulin Glargine 300 UNITS/3 ML PEN 14 UNITS SC (09:03)
--- NOTE | 2024-10-29 09:20 | PDOC.CMIN ---
Date of service: 10/29/24 Time of Service: 09:20 Care Management Initial Assmt Initial Assessment Reason for Hospitalization: CVA Functional Status/Living Situation Patient Presentation: Suzanne was awake and sitting up in bed when CM met with her. She is accompanied by her daughter/caregiver Yumi, both are pleasant and easily engage in conversation. Suzanne had a stroke earlier this year and lives with Yumi. Suzanne reports that she frequently runs out of fresh fruits and veggies towards the end of each month and expresses interest in a [facility] referral. Town of Residence: [place] Resides with: Child (Daughter Yumi) Significant Other/Family: Local Natural Supports: Supportive family Employment Status: Disabled Instrumental Activities of Daily Living (ADLs): Requires support with Dishes/food prep, Groceries and Transportation Medications Medication Management: No Issues/Barriers identified Physical Functioning/Mobility Assistive Device: None Advance Directives Advance Directives: Do you have an Advance Directive: N 10/28/24, 12:44 AD On File at [facility]: N 10/28/24, 12:44 Date Asked 08/23/24 09/11/24, 10:49 AD Date Reviewed 08/19/24 08/19/24, 13:25 COLST On File at [facility] COLST Date Scanned Code Status Resuscitation Status Full Code Portal Pt does not currently have a portal and education provided: Yes Insurance Coverage/Financial Issues Insurance: AARP/.[facility] - [id number] Medicaid of [place] - [id number] Care Team Visit Care Team Role Provider Type Diamante Shaikh APRN MD [facility] STAFF PHYSICIAN Jordan Sinclair Primary Care Provider NON-[facility] STAFF PHYSICIAN Caitie Seth Other Providers REG OCCUPATIONAL THERAPIST InPatient Henok Nicholas Other Providers OTHER Kendell Kaur MD Emergency Provider [facility] STAFF PHYSICIAN Rohit Zhang MD Admit Provider [facility] STAFF PHYSICIAN Attending Provider Discharge Potential Discharge Needs: PCP F/U Appt Anticipated Barriers to Discharge: None Identified Patient/Family Education Needs: Review discharge instructions, discuss Ask Me Three Transportation: Private vehicle Plan: Suzanne will be discharged home via private vehicle with her daughter, Yumi. She is planning to follow up with her PCP and adhere to her discharge plan of care as directed. CM provided information on community resources, and a referral was sent to [facility] with the patient's consent before discharge. Social Determinants of Health Screening Will the Patient Participate in the Screening?: Declined to provide Do you worry about having a steady place to live?: choose not to answer PFSH All Active Problems (Updated 10/29/24 @ 13:00 by Diamante Shaikh APRN) Discharge planning issues (Acute) Hypokalemia (Acute) Chronic kidney disease (Chronic) Diabetes mellitus (Chronic) Paroxysmal atrial fibrillation (Chronic) Essential hypertension (Chronic) GERD (gastroesophageal reflux disease) (Chronic) CVA (cerebral vascular accident) (Chronic) Facial droop (Acute) Referred otalgia of left ear (Acute) Seborrheic keratoses (Acute) Dry skin (Acute) Compulsive skin picking (Acute) Pruritic rash (Acute) Prurigo nodularis (Acute) COVID-19 (Acute) Medical History History of malignant melanoma Systemic lupus erythematosus GERD (gastroesophageal reflux disease) Degeneration of thoracic intervertebral disc Diverticulitis of colon Essential hypertension Paroxysmal atrial fibrillation Non-alcoholic fatty liver disease Sjogrens syndrome Social History Smoking/Tobacco Use Status: Former Tobacco Use Smoking risk assessment performed?: Yes Alcohol Intake: current Alcohol Intake frequency: holidays/special occasions only Drug use: Never Substance use type: does not use Do you feel safe at home: Yes Do you feel safe in your relationship?: Yes
--- NOTE | 2024-10-29 09:29 | PGE_ITS ---
Assessment and Plan Assessment and plan (1) Facial droop: Status: Acute Assessment and plan: Referred to observation for stroke rule out Same right-sided facial droop from previous CVA No other symptoms (2) CVA (cerebral vascular accident): Status: Chronic Assessment and plan: History of previous CVA with right-sided weakness/facial droop CTA with no large vessel disease Teleneuro consultation Given aspirin load in the emergency department continue aspirin 81 mg daily High-dose statin Anticoagulated on apixaban for history of paroxysmal atrial fibrillation MRI pending for tomorrow (3) Paroxysmal atrial fibrillation: Status: Chronic Assessment and plan: Rate controlled continue Metroprolol Is fully anticoagulated on apixaban (4) Essential hypertension: Status: Chronic Assessment and plan: Allow for permissive hypertension Will place chlorthalidone amlodipine losartan on hold to allow for permissive hypertension Will continue Metroprolol succinate due to history of A-fib (5) GERD (gastroesophageal reflux disease): Status: Chronic Assessment and plan: Continue PPI (6) Diabetes mellitus: Status: Chronic Assessment and plan: Diabetic diet Blood sugar checks AC and at bedtime with sliding scale coverage as needed (7) Chronic kidney disease: Status: Chronic Assessment and plan: Avoid nephrotoxic drugs Renally dose meds as needed Follow electrolytes and kidney function closely (8) Hypokalemia: Status: Acute Assessment and plan: Replete and follow Magnesium level 1.8 (9) Discharge planning issues: Status: Acute Objective Last Vital Signs Temp 36.7 C 10/29/24 07:58 Pulse 67 10/29/24 07:58 Resp 17 10/29/24 07:58 BP 157/86 H 10/29/24 07:58 Pulse Ox 98 10/29/24 07:58 Laboratory Results - last 24 hr 10/28/24 10/28/24 10/28/24 13:01 14:27 15:51 WBC 5.65 RBC 3.77 L Hgb 12.5 Hct 36.0 MCV 96 H MCH 33.2 H MCHC 34.7 RDW 12.3 Plt Count 206 MPV 10.7 Immature Gran % 0.4 Neutrophils % 65.1 Lymphocytes % 20.2 Monocytes % 7.8 Eosinophils % 5.3 Basophils % 1.2 Nucleated RBC % 0.0 Absolute Neutrophils 3.68 Absolute Lymphocytes 1.14 L Absolute Monocytes 0.44 Absolute Eosinophils 0.30 Absolute Basophils 0.07 Sodium 140 Potassium 3.4 L Chloride 103 Carbon Dioxide 24.3 Anion Gap 12.7 H BUN 42 H Creatinine 1.3 H Est GFR (CKD-EPI 2020) 43.42 Glucose 220 H Calcium 9.2 Magnesium 1.8 Total Bilirubin 0.5 AST 24 ALT 27 Alkaline Phosphatase 107 Troponin I 13 12 Cancelled Total Protein 7.9 Albumin 3.6 Urine Color Urine Clarity Urine pH Ur Specific [place] Urine Protein Urine Ketones Urine Blood Urine Nitrite Urine Bilirubin Urine Urobilinogen Ur Leukocyte Esterase Urine RBC Urine WBC Ur Epithelial Cells Urine Crystals Urine Bacteria Urine Casts Urine Mucus Ur Culture Indicated? Urine Glucose 10/28/24 17:20 WBC RBC Hgb Hct MCV MCH MCHC RDW Plt Count MPV Immature Gran % Neutrophils % Lymphocytes % Monocytes % Eosinophils % Basophils % Nucleated RBC % Absolute Neutrophils Absolute Lymphocytes Absolute Monocytes Absolute Eosinophils Absolute Basophils Sodium Potassium Chloride Carbon Dioxide Anion Gap BUN Creatinine Est GFR (CKD-EPI 2020) Glucose Calcium Magnesium Total Bilirubin AST ALT Alkaline Phosphatase Troponin I Total Protein Albumin Urine Color Yellow Urine Clarity Clear Urine pH 5.5 Ur Specific [place] 1.010 Urine Protein Negative Urine Ketones Negative Urine Blood Negative Urine Nitrite Negative Urine Bilirubin Negative Urine Urobilinogen 0.2 Ur Leukocyte Esterase Trace H Urine RBC Negative Urine WBC 3-5 Ur Epithelial Cells Rare Urine Crystals Negative Urine Bacteria Rare Urine Casts Negative Urine Mucus Negative Ur Culture Indicated? No Urine Glucose Negative
--- NOTE | 2024-10-29 10:44 | W.PM.DS.N ---
Date of service: 10/29/24 Time of Service: 10:44 DS: Diagnosis Discharge Diagnosis (1) Facial droop: Status: Acute (2) CVA (cerebral vascular accident): Status: Chronic (3) Paroxysmal atrial fibrillation: Status: Chronic (4) Essential hypertension: Status: Chronic (5) GERD (gastroesophageal reflux disease): Status: Chronic (6) Diabetes mellitus: Status: Chronic (7) Chronic kidney disease: Status: Chronic (8) Hypokalemia: Status: Acute (9) Discharge planning issues: Status: Acute Discharge Plan Disposition Patient Disposition: Home Condition: Improving Discharge Details Reason For Visit: CVA Admit Date/Time: 10/28/24 16:35 Admit Provider: Rohit Zhang Attending Provider: Rohit Zhang Primary Care Provider: Jordan Sinclair Hospital Course Hospital Course: This 74-year-old female patient with past medical history of CVA on Eliquis presented to the ED with complaints of right facial droop while at physical therapy session on 10/28/2024. The patient past medical history includes a CVA in 2024 with presentation of right facial droop with transfer to a tertiary facility insulin-dependent diabetes type 2, paroxysmal atrial fibrillation. EKG in the ED showed sinus rhythm heart rate 61 without signs of coronary occlusion. Workup in the ED was negative for new findings on and neck CTA only showing known old right MCA distribution infarct of stable appearance. Blood work was negative for any acute actionable findings. MRI was negative for evidence of acute infarct or hemorrhage and showing old right MCA territory infarct. The patient is hemodynamically stable afebrile without any further neurological symptoms and will be discharged home with addition of aspirin 81 mg daily for ABCD 2 score of 4, with outpatient physical therapy for balance progression. Follow-up with primary care practitioner within 7 days of discharge and recommendations for neurology referral. Outpatient echocardiogram ordered. Recommendation for PCP follow-up: Cardiology referral Neurology referral Follow-up on A1c and lipid panel, outpatient echocardiogram mild mucosal thickening in the right maxillary sinus on CT Discussed with Dr Mcnair Recommendations for Follow Up Recommended tests to be ordered by follow up provider: TSH, T4 Home Meds and New Rx's Prescriptions: New aspirin 81 mg Tablet,Delayed Release (Dr/Ec) 81 mg PO DAILY Qty: 60 0RF polyethylene glycol 3350 17 gram Powder In Packet 17 g PO DAILY Qty: 30 0RF Continued ProAir RespiClick 90 mcg/actuation aerosol powdr breath activated 2 inh inhalation Q4H PRN losartan 50 mg tablet 50 mg PO DAILY triamcinolone acetonide 0.1 % lotion 1 applic topical BID 14 Days Qty: 60 2RF metoprolol succinate 25 mg Tablet Extended Release 24 Hr 50 mg PO DAILY insulin glargine [Lantus Solostar U-100 Insulin] 100 unit/mL (3 mL) Insulin Pen 14 unit SUBCUT QAM tizanidine 2 mg tablet prazosin 1 mg capsule Patient Comments: TAKE 1 CAPSULE BY MOUTH EVERY NIGHT sertraline 100 mg tablet Patient Comments: TAKE 1 TABLET BY MOUTH EVERY DAY (DME) Accu-Chek Rosario Plus test strp Strip MISCELLANEOUS Patient Comments: USE 1 STRIP THREE TIMES DAILY FOR DIABETES amlodipine 5 mg tablet Patient Comments: TAKE 1 TABLET BY MOUTH EVERY DAY chlorthalidone 50 mg tablet Patient Comments: TAKE 1 TABLET BY MOUTH EVERY DAY DIRECTED (DME) lancets [Accu-Chek Fastclix Lancet Drum] Mis MISCELLANEOUS Patient Comments: USE DIRECTED THREE TIMES DAILY FOR DIABETES insulin lispro [Humalog KwikPen Insulin] 100 unit/mL insulin pen SUBCUT Patient Comments: INJECT 4 UNITS UNDER THE SKIN WITH MEALS UP TO 3 TIMES DAILY MAX DAILY DOSE IS 12 UNITS Eliquis 5 mg tablet 5 mg PO BID Patient Comments: TAKE 1 TABLET BY MOUTH TWICE DAILY DIRECTED pantoprazole 40 mg tablet,delayed release (DR/EC) 40 mg PO DAILY Patient Comments: TAKE 1 TABLET BY MOUTH DAILY Changed atorvastatin 40 mg tablet 80 mg PO DAILY Qty: 0 0RF Discharge Instructions Referrals: Jordan Sinclair [Primary Care Provider, Medicine] Referral Note: Follow-up within 7 days of discharge please [facility] [OTHER, Physical Therapy] Referral Note: outpatient PT for balance progression Activity:: Activity as Tolerated Equipment/Supplies:: As per [employer] Diet:: heart healthy DM II Discharge Orders Discharge Orders: Discharge Order (Routine); Ordered 10/29/24 Ordered By: Diamante Shaikh Other Ambulatory Orders: US echocardiogram (Routine) Timeframe: 10 Day Facility: [facility] - Location: DIAGNOSTIC IMAGING Ordered By: Diamante Shaikh DS: Summary Time Spent with Patient providing and/or coordinating discharge services: Greater than 30 minutes Status at Discharge Functional status at discharge: independent ambulation Overall status at discharge: patient is progressing back to baseline Mental Status: mental status grossly normal Speech and Movement: speech and movement normal Mood: congruent mood Affect: normal affect Exam Narrative Exam Narrative: Alert oriented times 4, no focal neurodeficit no further facial droop, clear lungs, S1-S2 regular, nonacute abdomen, no CVA tenderness, moves all 4 extremities Psych Mental Status: mental status grossly normal Speech and Movement: speech and movement normal Mood: congruent mood Affect: normal affect DS: Data Vitals/I&O Vitals and I&O: Vital Signs Temperature 36.7 C 10/29/24 07:58 Temperature Source Temporal Artery Scan 10/29/24 07:58 Pulse 67 10/29/24 07:58 Pulse Rhythm Irregular 10/28/24 21:10 Pulse 78 10/28/24 17:31 Respiratory Rate 17 10/29/24 07:58 Respiratory Effort Normal, Non-Labored 10/28/24 21:10 Respiratory Depth Normal 10/28/24 21:10 Respiratory Pattern Normal 10/28/24 21:10 Blood Pressure 157/86 H 10/29/24 07:58 Blood Pressure Mean 109 10/29/24 07:58 Blood Pressure Position Sitting 10/28/24 12:45 Pulse Oximetry 98 10/29/24 07:58 Oxygen Delivery Method Room Air 10/29/24 07:58 Oxygen Flow Rate 0 10/29/24 07:58 Pain Level 7 10/28/24 19:33 Intake & Output 10/28/24 10/28/24 10/29/24 11:59 23:59 11:59 Intake Total Balance Weight 74.843 kg Intake: IV Other: Urine Color Yellow Urine Appearance Clear Comment void in toilet. Data Completed and Pending Labs on day of discharge: Labs from last 24 hours 10/28/24 10/28/24 10/28/24 17:20 15:51 14:27 WBC RBC Hgb Hct MCV MCH MCHC RDW Plt Count MPV Immature Gran % Neutrophils % Lymphocytes % Monocytes % Eosinophils % Basophils % Nucleated RBC % Absolute Neutrophils Absolute Lymphocytes Absolute Monocytes Absolute Eosinophils Absolute Basophils Sodium Potassium Chloride Carbon Dioxide Anion Gap BUN Creatinine Est GFR (CKD-EPI 2020) Glucose Calcium Magnesium Total Bilirubin AST ALT Alkaline Phosphatase Troponin I Cancelled 12 Total Protein Albumin Urine Color Yellow Urine Clarity Clear Urine pH 5.5 Ur Specific [place] 1.010 Urine Protein Negative Urine Ketones Negative Urine Blood Negative Urine Nitrite Negative Urine Bilirubin Negative Urine Urobilinogen 0.2 Ur Leukocyte Esterase Trace H Urine RBC Negative Urine WBC 3-5 Ur Epithelial Cells Rare Urine Crystals Negative Urine Bacteria Rare Urine Casts Negative Urine Mucus Negative Ur Culture Indicated? No Urine Glucose Negative 10/28/24 13:01 WBC 5.65 RBC 3.77 L Hgb 12.5 Hct 36.0 MCV 96 H MCH 33.2 H MCHC 34.7 RDW 12.3 Plt Count 206 MPV 10.7 Immature Gran % 0.4 Neutrophils % 65.1 Lymphocytes % 20.2 Monocytes % 7.8 Eosinophils % 5.3 Basophils % 1.2 Nucleated RBC % 0.0 Absolute Neutrophils 3.68 Absolute Lymphocytes 1.14 L Absolute Monocytes 0.44 Absolute Eosinophils 0.30 Absolute Basophils 0.07 Sodium 140 Potassium 3.4 L Chloride 103 Carbon Dioxide 24.3 Anion Gap 12.7 H BUN 42 H Creatinine 1.3 H Est GFR (CKD-EPI 2020) 43.42 Glucose 220 H Calcium 9.2 Magnesium 1.8 Total Bilirubin 0.5 AST 24 ALT 27 Alkaline Phosphatase 107 Troponin I 13 Total Protein 7.9 Albumin 3.6 Urine Color Urine Clarity Urine pH Ur Specific [place] Urine Protein Urine Ketones Urine Blood Urine Nitrite Urine Bilirubin Urine Urobilinogen Ur Leukocyte Esterase Urine RBC Urine WBC Ur Epithelial Cells Urine Crystals Urine Bacteria Urine Casts Urine Mucus Ur Culture Indicated? Urine Glucose PFSH All Active Problems (Updated 10/29/24 @ 13:00 by Diamante Shaikh APRN) Discharge planning issues (Acute) Hypokalemia (Acute) Chronic kidney disease (Chronic) Diabetes mellitus (Chronic) Paroxysmal atrial fibrillation (Chronic) Essential hypertension (Chronic) GERD (gastroesophageal reflux disease) (Chronic) CVA (cerebral vascular accident) (Chronic) Facial droop (Acute) Referred otalgia of left ear (Acute) Seborrheic keratoses (Acute) Dry skin (Acute) Compulsive skin picking (Acute) Pruritic rash (Acute) Prurigo nodularis (Acute) COVID-19 (Acute) Medical History History of malignant melanoma Systemic lupus erythematosus GERD (gastroesophageal reflux disease) Degeneration of thoracic intervertebral disc Diverticulitis of colon Essential hypertension Paroxysmal atrial fibrillation Non-alcoholic fatty liver disease Sjogrens syndrome Social History Smoking/Tobacco Use Status: Former Tobacco Use Smoking risk assessment performed?: Yes Alcohol Intake: current Alcohol Intake frequency: holidays/special occasions only Drug use: Never Substance use type: does not use Do you feel safe at home: Yes Do you feel safe in your relationship?: Yes Time Spent with Patient Time Spent with Patient: 70-84 minutes4 Time was spent: preparing to see the patient(eg.review tests), obtaining and/or reviewing separately otained hiistory, ordering medications,tests, procedures, referring, communicating with other health youth care professional, indepentently interpreting results, counseling the patient and care coordination
--- NOTE | 2024-10-29 11:08 | PT.INIE ---
PT Notes Visit Reasons: Cerebrovascular accident Physical Therapy Inpatient Initial Evaluation Date: 10/30/2024 Referring Doctor: Ana Corrales NP PT Orders: PT CONSULT: Eval/Treat Precautions: Fall. Standard. Activity as tolerated. Patient Profile/Admitting Diagnosis: 74-year-old female who presented with R facial droop at the ED and admitted overnight for CVA work up per protocol. Patient as also being managed for PAF, essential HTN, and hypokalemia. PMHX: All Active Problems (Updated 10/28/24 @ 16:46 by Ana Corrales NP) Discharge planning issues (Acute) Hypokalemia (Acute) Chronic kidney disease (Chronic) Diabetes mellitus (Chronic) Paroxysmal atrial fibrillation (Chronic) Essential hypertension (Chronic) GERD (gastroesophageal reflux disease) (Chronic) CVA (cerebral vascular accident) (Chronic) Facial droop (Acute) Referred otalgia of left ear (Acute) Seborrheic keratoses (Acute) Dry skin (Acute) Compulsive skin picking (Acute) Pruritic rash (Acute) Prurigo nodularis (Acute) COVID-19 (Acute) Medical History History of malignant melanoma Systemic lupus erythematosus GERD (gastroesophageal reflux disease) Degeneration of thoracic intervertebral disc Diverticulitis of colon Essential hypertension Paroxysmal atrial fibrillation Non-alcoholic fatty liver disease Sjogrens syndrome Social History/Home Situation: Lives with son and daughter in a priavte home with 2 steps to enter with rail on one side. Able to make her own meal. Equipment Owned/DME: [employer] Subjective: Denied headache, chest pain, and lightheadedness throughout session. Denied nubness, tingling and weakness in either extremities. Looking forward to going home whne medically cleared. Objective: General Observation: Seated at edge of bed. Daughter Yumi present in room thorughout session. Carolee the [employer]cimer player just got done with sharing her mucsic to patient and patient's daughter who enjoyed it very much. Mental Status: Alert and oriented as to person, place, time, and purpose. Able to pay attention, focus, and respond appropriately. Pain: None reported Vital Signs: Closely monitored by nursing staff ROM: Right Upper Extremity: Shoulder Flexion WFL. Shoulder abduction WFL. Elbow flexion WFL. Wrist flexion WFL. Functional opening and closing of hand WFL. Left Upper Extremity: Shoulder Flexion WFL. Shoulder abduction WFL. Elbow flexion WFL. Wrist flexion WFL. Functional opening and closing of hand WFL. Right Lower Extremity: Hip flexion WFL. Hip abduction WFL. Knee flexion WFL. Ankle dorsiflexion WFL. Ankle plantarflexion WFL. Left Lower Extremity: Hip flexion WFL. Hip abduction WFL. Knee flexion WFL. Ankle dorsiflexion WFL. Ankle plantarflexion WFL. Strength: Right Upper Extremity: Shoulder flexors 4-/5. Shoulder abductors 4-/5. Elbow flexors 5/5. Elbow extensors 4/5. [employer] Specialist strong. Left Upper Extremity: Shoulder flexors 4-/5. Shoulder abductors 4-/5. Elbow flexors 5/5. Elbow extensors 4/5. Veter[employer] Specialist strong. Right Lower Extremity: Hip flexors 4-/5. Hip abductors 4-/5. Knee flexors 4/5. Knee extensors 4-/5. Ankle dorsiflexors 4-/5. Ankle plantarflexors 4-/5. Left Lower Extremity: Hip flexors 4-/5. Hip abductors 4-/5. Knee flexors 4/5. Knee extensors 4-/5. Ankle dorsiflexors 4-/5. Ankle plantarflexors 4-/5. Bed Mobility/Transfers: Independent Gait: 300 feet + 300 feet with no assistived device. Mild path deviation as right away corrected and did not result to LOB. Minimal shortness of breath resolved with rest. Supervision only for directions. Stairs: Up and down 3 x 4-inch steps and 2 x 6-inch steps while holding onto 1 rail with step over step technique with supervision only. Balance: Static Sitting: Normal Dynamic Sitting: Normal Static Standing: Good Dynamic Standing: Good Romberg Test: Minimal sway but no LOB 4-stage Balance test: Feet together: 10 seconds Semi-tandem: 10 seconds Full tandem: 8 seconds One-legged stance: deferred Rapid Alternating movement: Impaired 30-second chair rise Score: 8x Special Tests: Mobility Limitations Standardized Measure [facility] AM-PAC 6 clicks Basic Mobility Inpatient Short Form: Raw Score: 24 CMS Score: 0% deficit Informed Consent/Education: Patient was instructed in purpose of PT consult. Assessment: Patient with previous CVA who presented with increased facial droop. CT and MRI showed no vessel occlusion nor acute intracranial abnormality. Patient was able to navigate hospital floors for about 300 feet without an assistive device with minimal path deviation that was right away corrected and did not lead to any LOB. Patient lives with daughter and son who both help with grocery shopping, meal preparation, cooking, and medication management. Patient is assessed as a 01233 moderate complexity based on the following: History: 74-year-old female with past medical history as indicated above Examination: As above Presentation: Stable Decision Makin moderate complexity Goals: N/A. PT evaluation nad one treatment session only for functional mobility training. Plan of Care/Treatment Plan: N/A. PT evaluation nad one treatment session only for functional mobility training. DISCHARGE RECOMMENDATIONS: May do OP PT for balance progression for safer community ambulation. No equipment needs. TREATMENT CODE/TIME: 05858 x 20 minutes for 1 unit, 10849 x 14 minutes for 1 unit (11:08-11:42). Thank you for the opportunity to participate in the care of this patient. Naomi Walsh PT, DPT, CLT [facility] [place], [place]
--- NOTE | 2024-10-29 12:39 | PDOC.CMDIS ---
Date of service: 10/29/24 Time of Service: 12:39 LACE Index Scoring Tool Questions: Length of Stay (in days): 1 Was the patient admitted via the E.D.?: Yes Comorbidities: Cerebrovascular Disease (July 2024), Diabetes w/o Complication and Liver or Renal Disease E.D. Visits: 3 Answers: Total Score: 12 Risk of Readmission: High Risk Care Management Discharge Plan Reason for Hospitalization: CVA Discharge Plan: Suzanne was discharged home via private vehicle with her daughter, Yumi. She is planning to follow up with her PCP and adhere to her discharge plan of care as directed. CM provided information on community resources, and a referral was sent to [facility] with the patient's consent before discharge. Patient/Family Education Needs: Review discharge instructions and plan to follow up after discharge. Discuss ask me 3. Services Needed at Discharge: Physical Therapy (Outpatient PT recommended)
[2024-10-29 13:48] LABS: Calculated LDL 61 mg/dL (<100); Cholesterol 147 mg/dL (<200); HDL Cholesterol 34 mg/dL (>or=50); Triglyceride 263 mg/dL (<150)
[2024-10-29 13:55] LABS: Hemoglobin A1C 8.1 % (<5.7)
== END 2024-10-29 15:04 | disposition home or self-care (01) ==
LOC: ER 16:18 → MS 18:28
PROVIDERS: Registered Nurse Emergency; Admitting Provider Family Medicine; Emergency Provider Emergency Medicine; PCP Student in an Organized Health Care Education/Training Program; Responsible Provider Nurse Practitioner Acute Care; Visit Provider Family Medicine
DX: R29.810 Facial weakness (principal); I48.0 Paroxysmal atrial fibrillation; I12.9 Hypertensive chronic kidney disease with stage 1 through stage 4 chronic kidney disease, or unspecified chronic kidney disease; K21.9 Gastro-esophageal reflux disease without esophagitis; N18.9 Chronic kidney disease, unspecified; E87.6 Hypokalemia; E11.22 Type 2 diabetes mellitus with diabetic chronic kidney disease; Z79.01 Long term (current) use of anticoagulants; Z86.73 Personal history of transient ischemic attack (TIA), and cerebral infarction without residual deficits; Z79.4 Long term (current) use of insulin; L28.1 Prurigo nodularis; M51.34 Other intervertebral disc degeneration, thoracic region
CPT/HCPCS: 00123; 36415; 36416; 70496; 70498; 80053; 80061; 82962; 93005; 96360; 97162; 97530; 99285; 70551; 71046; 81003; 81015; 83036; 83735; 84484; 85025; 93010; 99233; 99239; G0378; J1815

== ENCOUNTER 2024-12-06 00:34 | Outpatient (CLI) | payer MEDICARE, MEDICAID, SELFPAY ==
--- NOTE | 2024-12-06 12:35 | DI.US_ITS ---
APPROVED REPORT EXAM: Comprehensive 2D, Doppler, and color-flow Echocardiogram Patient Location: Out-Patient [employer]: Kinga Alexander RDCS (AE) Indications: CVA Other Information Study Quality: Adequate Conclusion Normal left ventricular wall thickness and chamber size. Ejection fraction is 58%. Wall motion is normal Normal right ventricular size and function Left atrium is mildly dilated. Normal right atrial size There are no significant valvular abnormalities Estimated right ventricular systolic pressure is 30 mmHg Wall motion Left Ventricle The left ventricle is normal size. The left ventricular systolic function is normal. The left ventricular ejection fraction is within the normal range. There is normal left ventricular wall thickness. There is normal LV segmental wall motion. There is no ventricular septal defect visualized. LVEF is 58%. Right Ventricle The right ventricle is normal size. The right ventricular systolic function is normal. Atria Left atrium is mildly dilated. The right atrium size is normal. The interatrial septum is intact with no evidence for an atrial septal defect. Aortic Valve The aortic valve is normal in structure. There is no aortic valvular stenosis. Trace aortic regurgitation. Mitral Valve The mitral valve is normal in structure. No evidence of mitral valve stenosis. Trace mitral regurgitation. Tricuspid Valve The tricuspid valve is normal in structure. There is no tricuspid valve stenosis. Trace tricuspid regurgitation. The RVSP is 29.9 mmHg. Pulmonic Valve The pulmonary valve is normal in structure. There is no pulmonic valvular stenosis. There is no pulmonic valvular regurgitation. Great Vessels The aortic root is normal in size. The ascending aorta is normal in size. Aortic arch is not well visualized. IVC is normal in size and collapses >50% with inspiration. Pericardium There is no pericardial effusion. 2D Dimensions IVSD d PLAX 0.80 cm F: 0.6-1.0 Ao Root d 2.84 cm F: 2.7 - 3.3 LVPW d PLAX 0.80 cm F: 0.6 - 1.0 Ao Asc Diam d 3.26 cm F: 2.3 - 3.1 LVID d PLAX 4.30 cm F: 3.8 - 5.2 LVDs 2.94 cm F: 2.2 - 3.5 LV EF Teichholz 59.7 % FS 31.47 % LV EDV (Teich) 82.3 mL LV ESV (Teich) 33.2 mL M-Mode TAPSE 2.02 cm (M/F) >1.7 Auto EF LV EDV A4C 66.5 mL LV EDV A2C 70.8 mL LV EDV BP 70.7 mL LV ESV A4C 28.8 mL LV ESV A2C 30.7 mL LV ESV BP 30.0 mL LVEF(%) A4C 56.7 % LVEF(%) A2C 56.7 % LVEF(%) BP 57.5 % LV SV A4C 37.7 ml LV SV A2C 40.1 ml LV SV BP 40.6 ml LV CO A4C 2.1 L/min LV CO A2C 2.4 L/min LV CO BP 2.3 L/min HR A4C 56.70 BPM HR A2C 58.90 BPM LV EDV Index (BP) LA Volume LA Length A4C 5.7 cm LA Length A2C 5.7 cm LA Area A4C s 22.26 cm2 LA Area A2C s 16.10 cm2 LA Vol A4C A-L 73.45 mL LA Vol A2C A-L 38.77 mL LA Vol Biplane A-L 53.6 mL LA Vol/BSA A4C A-L LA Vol/BSA A2C A-L LA Vol/BSA BP A-L 31.3 mL/m2 LA Vol A4C MOD 65.9 mL LA Vol A2C MOD 36.7 mL LA Vol BP MOD 48.8 mL RA Volume RA Area A4C 11.9 cm2 RA ESV A4C (A-L) 27.8mL RA Vol/BSA A4C A-L RA Length A4C 4.3 cm RA ESV A4C (MOD) 26.7mL LV Diastology MV E' medial 0.077 (>0.07 m/s) MV E Vmax 0.68 (0.4-1.3 m/s) MV E/E' MED 8.88 (<14) MV A Vmax 1.00 (0.4-1.3 m/s) MV E' lateral 0.074 (>0.1 m/s) E/A Ratio 0.7 MV E/E' LAT 9.20 (<14) MV E' Average 0.075 m/s MV E/E'(average) 9.03 Aortic Valve AoV Vmax 1.56 m/s LVOT Vmax 1.20 m/s AoV Peak Grad 22.8 mmHg LVOT Peak Grad 5.7 mmHg AoV Area (Vmax) 2.31 cm2 LVOT VTI 0.263 m AoV VTI 0.332 m LVOT Mean Grad 3.1 mmHg AoV Mean Desean. 1.09 m/s LVOT SV 79.29 mL AoV Mean Grad 5.4 mmHg LVOT Diam s 1.95 cm AoV Area (VTI) 2.39 cm2 AV Regurg Peak Gr. 9.74 mmHg Velocity Ratio 0.77 AR Decel [place] 0.5m/sec2 AR DT 5973 msec AR PHT 1732 msec AR Vmax 2.99 m/s Mitral Valve MV DT 255 (160-240 msec) MV Vmax TIPS 0.80 m/s MV Mean Grad 0.9 (<2mmHg) MV VTI 0.323 m Pulmonary Valve PV Vmax 1.01 (0.5-1.5 m/s) RVOT Vmax 0.77 m/s PV Peak Grad 4.1 mmHg RVOT Peak Gr. 2.4 mmHg PV Mean [place] 0.71 m/s RVOT VTI 0.180 m PV Mean Grad 2.2 mmHg RVOT Mean Gr. 1.3 mmHg Tricuspid Valve RA Pressure 3.00 mmHg TR Vmax 2.59 m/s TV S' 0.14 m/s TR Peak Grad 26.9 mmHg RVSP (TR) 29.9 mmHg
== END 2024-12-06 00:54 ==
LOC: DI 00:35
PROVIDERS: PCP Student in an Organized Health Care Education/Training Program; Visit Provider Internal Medicine Cardiovascular Disease
DX: I63.9 Cerebral infarction, unspecified (principal)
CPT/HCPCS: 93306

== ENCOUNTER 2025-02-28 13:38 | Outpatient (REF) | payer MEDICARE, MEDICAID, SELFPAY ==
[2025-02-28 22:03] LABS: Anion Gap 13.2 mmol/L (3-11); BUN 21 mg/dL (9-23); CO2 22.8 mmol/L (20.0-31.0); Calcium 9.5 mg/dL (8.3-10.6); Chloride 109 mmol/L (98-107); Glucose 201 mg/dL (74-106); Potassium 3.8 mmol/L (3.5-5.1); Sodium 145 mmol/L (136-145)
[2025-02-28 22:08] LABS: Magnesium 1.8 mg/dL (1.6-2.6)
[2025-02-28 22:10] LABS: Abs Immature Grans 0.02 10^3/uL (0.0-0.06); HCT 34.1 % (36.0-46.0); HGB 11.5 g/dL (11.2-15.7); Immature Grans % 0.3 %; MCH 32.4 pg (27.0-33.0); MCHC 33.7 % (32.0-36.0); MCV 96 fL (80-95); MPV 10.2 fL (8.0-11.0); Platelet Count 247 10^3/uL (130-400); RBC 3.55 10^6/uL (3.93-5.22); RDW 13.2 % (11.7-14.6); RDW-SD 46.1 fL; WBC 7.02 10^3/uL (4.4-10.8)
[2025-02-28 22:26] LABS: Hemoglobin A1C 7.7 % (<5.7)
== END 2025-02-28 13:39 | disposition home or self-care (01) ==
LOC: NCHCN 13:38
PROVIDERS: PCP Student in an Organized Health Care Education/Training Program; Visit Provider Student in an Organized Health Care Education/Training Program
DX: E11.9 Type 2 diabetes mellitus without complications (principal); Z79.4 Long term (current) use of insulin; I10 Essential (primary) hypertension
CPT/HCPCS: 80048; 83036; 83735; 85025

== ENCOUNTER → 2025-03-27 00:20 | Outpatient (CLI) | payer MEDICARE, MEDICAID, SELFPAY ==
--- NOTE | 2025-03-27 09:45 | ST.MBS_ITS ---
Date of Service Date of service: 03/27/25 Time of Service: 10:45 Modified Barium Swallow Study Findings: Video fluoroscopic Swallowing Evaluation (VFSE) / Modified Barium Swallow Study (MBSS) Speech Language Pathology Report Patient referred for VFSE/MBSS from Roman Sinclair PA-C given dysphagia symptoms. 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 Suzanne and her daughter Yumi report some baseline dysphagia pre stroke that may have worsened post. She describes 'effortful swallow' and stasis in sternal region. They were seen by ENT/Jayne Zepeda and flexible laryngoscopy was unremarkable. PMHx: BRYCE, Diabetes mellitus, GERD (on Omeprazole), anxiety, essential tremor, hx CVA in June/July 2024 IMPRESSIONS: Oral pharyngeal swallow function is well within normal limits for age. No evidence of penetration, aspiration, or pharyngeal retention. Anticipate symptoms may be secondary to esophageal dysfunction and recommend referral to GI. Patient and daughter aware of findings and recommendations. Specialist referrals:? GI Ancillary tests: May consider EGD/Upper GI Endoscopy vs barium swallow study . RECOMMENDATIONS: Diet Texture Recommendation:? IDDSI LEVEL SOLIDS 7-Regular Solids LIQUIDS 0-Thin Liquids MEDICATIONS As tolerated Diet texture modification is per patient's preference; please adjust diet textures at patient's discretion & collaboration with care team. Do not alter medications (e.g., cut)? without advice from your MD or pharmacist. Risk Management Strategies:? Behavioral reflux precautions, including upright position during + 90 mins after meals. Small bites, approx [id number] Small sips, approx 10 mL Always have a liquid with meals PLAN: Evaluation only no further [employer] needs identified OBJECTIVE Videofluoroscopic Swallow Evaluation (VFSE/MBSS) was conducted in the lateral projection by Speech-Language Pathologist, in collaboration with Radiologist, to evaluate oropharyngeal swallow function. Oral-Motor/Peripheral Screening: WFL/Unremarkable dentition, oral mucosa, and CN/airway function Anatomic view under fluoroscopy: WFL PO Barium Contrast Trials Oral barium water-soluble contrast was administered as follows: IDDSI Level 0 Varibar thin liquid (40% w/v) IDDSI Level 2 Varibar nectar thick/mildly thick liquid (40% w/v) IDDSI Level 4 Varibar pudding/pureed/extremely thick (40% w/v) IDDSI Level 7 Regular Solid: 1/2 georges cracker coated in 3 mL Varibar pudding [place] Pharyngeal Residue Severity Rating Scale (YPRS) (Maksim et al, 2015) Vallecula Residue Severity II Trace 1-5% Trace coating of the mucosa Pyriform Sinus Residue Severity I None 0% No residue MBSImP Component Scores: COMPONENT Scale SCORE 1 Lip Closure (0-4) 0 No labial escape 2 Tongue Control During Hold (0-3) 0 Cohesive bolus between tongue to palatal seal 3 Bolus Preparation (0-3) 1 Slow prolonged chewing/mashing with complete re- collection 4 Bolus Transport (0-4) 2 Slowed tongue motion 5 Oral Residue (0-4) 1 Trace residue lining oral structures 6 Swallow Initiation (0-4) 1 Bolus head in valleculae 7 Soft Palate Elevation (0-4) 0 No bolus between soft palate (SP)/pharyngeal wall (PW) 8 Laryngeal Elevation (0-3) 0 Complete superior movement of thyroid cartilage with complete approximation of arytenoids to epiglottic petiole 9 Anterior Hyoid Excursion (0-2) 0 Complete anterior movement 10 Epiglottic Movement (0-2) 0 Complete inversion 11 Laryngeal Vestibular Closure (0-2) 0 Complete; no air/contrast in laryngeal vestibule 12 Pharyngeal Stripping Wave (0-2) 0 Present - complete 13 Pharyngeal Contraction (0-3) 0 Complete 14 PES Opening (0-3) 0 Complete distension and complete duration; no obstructi on of flow 15 Tongue Base Retraction (0-4) 0 No contrast between TB and posterior pharyngeal wall (PW) 16 Pharyngeal Residue (0-4) 1 Trace residue within or on pharyngeal structures 17 Esophageal Clearance (0-4) NA Results: COMPONENT Scale SCORE 1 Oral Score (0-22) 4 2 Pharyngeal Score (0-29) 0 3 Esophageal Score (0-4) 0 Functional Oral Intake Scale: COMPONENT Scale SCORE 1 Pre-Study (1-7) 7 Total oral intake with no restrictions 2 Post-Study (1-7) 7 Total oral intake with no restrictions Penetration-Aspiration Scale: COMPONENT Scale SCORE 1 Thin liquid (1-8) 1 Contrast did not enter the airway 2 [place] thick (1-8) 1 Contrast did not enter the airway 3 Honey thick (1-8) NA 4 Pudding thick (1-8) 1 Contrast did not enter the airway 5 Cookie (1-8) 1 Contrast did not enter the airway Thank you for allowing us to take part in this patient's care. Please feel free to contact the [facility] Speech Language Pathology Department with any questions/concerns.
[2025-03-27] MEDS: Barium Sulfate Oral Paste 40% W/V 230 ML TUBE PO (11:31)
[2025-03-27] MEDS: Barium Sulfate 81% w/w for Oral Suspension 148 GM BTL PO (11:33)
[2025-03-27] MEDS: Barium Sulfate 40% W/V 240 ML BTL PO (11:35)
--- NOTE | 2025-03-27 11:36 | DI.RAD_ITS ---
Exam(s) RF MODIFIED SPEECH BA SWALLOW TECHNIQUE: Modified barium swallow was performed in conjunction with speech pathology. CONTRAST MATERIAL: Oral barium Oral water soluble contrast was administered. COMPARISON: No exams were available for comparison FINDINGS: Note that this is not a dedicated esophagram, distal esophagus not evaluated. There is no evidence of aspiration or penetration of thick or thin liquids, barium pudding or barium coated cookie. Speech pathology report to follow. . . . IMPRESSION: No evidence of aspiration or penetration. RADIATION DOSE DELIVERED: cony Corley=4.34 mGy
== END ==
LOC: DI 00:20
PROVIDERS: PCP Student in an Organized Health Care Education/Training Program; Visit Provider Student in an Organized Health Care Education/Training Program
DX: R13.12 Dysphagia, oropharyngeal phase (principal); I63.9 Cerebral infarction, unspecified
CPT/HCPCS: 92526; 92611; 74221